=== PATIENT | male | born 1950 | race Caucasian/White ===

== ENCOUNTER 2016-05-01 11:00 | Day surgery (SDC) ==
[2016-04-30 13:15] LABS: HEMATOCRIT 43.5 % (42.0-52.0); HEMOGLOBIN 14.7 g/dL (14.0-18.0); MCH 31.5 PG (27-31); MCHC 33.8 g/dL (33-37); MCV 93.3 FL (81-99); MPV 10.3 FL (7.4-10.4); RBC 4.66 XMIL (4.7-6.1)
[2016-04-30 13:36] LABS: AGAP 12; BUN 19 mg/dL (8-22); CALCIUM 9.5 mg/dL (8.8-10.2); CHLORIDE 99 mmol/L (98-107); COSMO 279; POTASSIUM 4.2 mmol/L (3.5-5.1); SODIUM 139 mmol/L (136-145); TCO2 28 mmol/L (25-35)
[2016-04-30 14:33] LABS: URIC ACID 4.5 mg/dL (3.4-7.0)
[2016-05-01] MEDS ORDERED: KEFZOL 2 GM/D5W 50 ML ONE (11:13)
[2016-05-01] MEDS ORDERED: REGLAN ONE (11:13)
[2016-05-01] MEDS ORDERED: PEPCID ONE (11:13)
[2016-05-01] MEDS ORDERED: LR 1,000 ML ONE (11:13)
[2016-05-01] MEDS ORDERED: DIPRIVAN 1% ONE (14:22)
[2016-05-01] MEDS ORDERED: DECADRON ONE (15:08)
[2016-05-01] MEDS ORDERED: ZOFRAN ONE (15:08)
[2016-05-01] MEDS ORDERED: MANNITOL ONE (15:08)
[2016-05-01] MEDS ORDERED: XYLOCAINE-MPF 2% ONE (15:08)
[2016-05-01] MEDS ORDERED: FLOMAX ONE (15:25)
--- NOTE | 2016-05-01 15:25 | OPERATIVE NOTE ---
PROCEDURE DATE: 05/01/2016 SURGEON: Wali Astorga MD PREOPERATIVE DIAGNOSIS: Right renal pelvic stone. POSTOPERATIVE DIAGNOSIS: Right renal pelvic stone. PROCEDURE PERFORMED: Extracorporeal shockwave lithotripsy of the right renal pelvic stone. ANESTHESIA: General via laryngeal mask. FINDINGS: An approximate 15 mm in diameter right renal pelvic stone. INDICATION FOR PROCEDURE: This 65-year-old male has a history of intermittent right flank pain. Evaluation revealed a large right renal pelvic stone. DESCRIPTION OF PROCEDURE: After informed consent was obtained from the patient, and him receiving IV antibiotics, he was taken to the main OR, placed in the supine position. General anesthesia via laryngeal mask was achieved. He was then placed in the proper position for right extracorporeal shockwave lithotripsy. The stone received 3000 shocks at a frequency of 90 per minute. He received 12.5 g of mannitol at the start. At completion, the stone appeared well fragmented. Total fluoroscopy time was 2 minutes 36 seconds. ESTIMATED BLOOD LOSS: 0. DISPOSITION: He tolerated the procedure well and was taken to the recovery room in good condition.
[2016-05-01] MEDS ORDERED: NORCO-10 ONE (15:29)
[2016-05-01 15:49] VITALS: BP 131/72
== END 2016-05-01 16:04 | disposition home or self-care (01) ==
LOC: PAT 11:00
PROVIDERS: ATTEND Urology
DX: N20.0 Calculus of kidney (principal); R10.9 Unspecified abdominal pain; N40.1 Benign prostatic hyperplasia with lower urinary tract symptoms; Z85.46 Personal history of malignant neoplasm of prostate; R97.20 Elevated prostate specific antigen [PSA]; R31.0 Gross hematuria; E29.1 Testicular hypofunction; N32.81 Overactive bladder; N52.9 Male erectile dysfunction, unspecified; N32.89 Other specified disorders of bladder; E11.9 Type 2 diabetes mellitus without complications; I10 Essential (primary) hypertension; Z68.36 Body mass index [BMI] 36.0-36.9, adult; E78.5 Hyperlipidemia, unspecified; G62.9 Polyneuropathy, unspecified; E66.9 Obesity, unspecified; Z90.79 Acquired absence of other genital organ(s); R39.15 Urgency of urination; Z79.82 Long term (current) use of aspirin; Z79.84 Long term (current) use of oral hypoglycemic drugs; Z79.899 Other long term (current) drug therapy; Z79.02 Long term (current) use of antithrombotics/antiplatelets; Z83.3 Family history of diabetes mellitus; Z82.49 Family history of ischemic heart disease and other diseases of the circulatory system; Z87.891 Personal history of nicotine dependence
CPT/HCPCS: 80048; 82948; 84550; 85027; J0690; J1100; J1170; J2150; J2405; J2550; J7120

== ENCOUNTER 2016-05-01 18:54 | Emergency (ER) ==
[2016-05-01] MEDS ORDERED: DILAUDID IM ONE (19:14)
[2016-05-01] MEDS ORDERED: PHENERGAN IM ONE (19:14)
--- NOTE | 2016-05-01 19:18 | PROVIDER DOCUMENTATION ---
HPI-General Adult - General Source: patient - History of Present Illness -Gen Adult Nature of Presenting Problems: 65 YOWM WITH HX OF MILD KIDNEY FAILURE, PRESETS TOED WITH C/O PT STATES HE WENT FOR A LITHOTRIPSY TODAY, AND NOW HAS SEVERE LT FLANK PAIN. PT STATES N/V SINCE PROCEDURE. PT STATES HE HAS BLOOD IN HIS URINE. Location of Pain/Injury: reports: other (LT FLANK) Pain Radiation: reports: no radiation Quality of Pain: reports: aching Severity: reports: severe Onset/Duration: reports: 1-3 hours ago Timing: reports: still present Context/Activities at Onset: reports: light activity Modifying Factors: improves with: nothing Similar Symptoms Previously?: No Recently seen or treated by another doctor?: No <Nomi Meehan - Last Filed: 05/01/16 19:13> <Thang Leonardo - Last Filed: 05/01/16 19:59> - General Chief Complaint: Flank Pain Stated Complaint: POST OP COMPLAINT Time Seen by Provider: 05/01/16 19:03 Allergies/Adverse Reactions: Patient Allergies Allergy/AdvReac Type Severity Reaction Status Date / Time No Known Allergies Allergy Verified 04/30/16 11:32 Home Medications: Home Medication List Medication Instructions Recorded Confirmed Last Taken Type ATORVAstatin [Lipitor] 40 mg PO DAILY 12/07/14 05/01/16 04/30/16 21:00 History Amlodipine [Norvasc] 5 mg PO DAILY 12/07/14 05/01/16 05/01/16 09:00 History Aspirin 81 mg PO DAILY 12/07/14 05/01/16 04/30/16 History Candesartan Cilexetil [Atacand] 32 mg PO DAILY 12/07/14 05/01/16 04/30/16 08:00 History Fexofenadine [Charlee] 180 mg PO DAILY 12/07/14 05/01/16 04/30/16 08:00 History Isosorbide Mononitrate E.r. [Imdur] 30 mg PO DAILY 12/07/14 05/01/16 05/01/16 09 :00 History Metformin HCl [Glucophage Xr] 250 mg PO BID 12/07/14 05/01/16 04/30/16 19:00 History Sertraline HCl [Zoloft] 100 mg PO DAILY 12/07/14 05/01/16 04/30/16 08:00 History Trazodone [Desyrel] 50 mg PO QHS 12/07/14 05/01/16 04/30/16 21:00 History Clopidogrel Bisulfate [Plavix] 75 mg PO DAILY #0 12/14/14 05/01/16 04/30/16 Rx Hydrocodone/APAP 10 mg/325 mg 1 each PO Q4H PRN #15 tablet 05/01/16 05/01/1610/09 Rx [[place]-10] Tamsulosin [Flomax] 0.4 mg PO DAILY #30 capsule 05/01/16 05/01/16 04/30/16 Rx Review of Systems - Adult - REVIEW OF SYSTEMS - ADULT Constitutional: denies: chills, fever Eyes: reports: no symptoms reported Ears, Nose, Mouth & Throat: reports: no symptoms reported Cardiovascular: denies: chest pain, palpitations, syncope Respiratory: denies: cough, shortness of breath, wheezing Gastrointestinal: reports: nausea, vomiting. denies: abdominal pain, diarrhea Genitourinary: reports: no symptoms reported Musculoskeletal: denies: back pain, neck pain Integumentary: reports: no symptoms reported Neurological: denies: dizziness/vertigo, headache/migraines, syncope Psychiatric: reports: no symptoms reported Endocrine: reports: no symptoms reported Hematologic/Lymphatic: reports: no symptoms reported Allergic/Immunologic: reports: no symptoms reported All Other Systems: Reviewed and Negative <Nomi Meehan - Last Filed: 05/01/16 19:13> Past History - Adult - PAST MEDICAL HISTORY-ADULT Review of Records: reports: Nursing Assessment Review, Medications Reviewed Cardiovascular: reports: HTN, hyperlipidemia Endocrine/Immune: reports: Diabetes - IMMUNIZATION STATUS Childhood Immunizations: See Nurse Assessment Flu Vaccine: See Nurse Assessment - SOCIAL HISTORY Smoking: chew Substance Use: denies Alcohol Use Frequency: never Living Situation: family <Nomi Meehan - Last Filed: 05/01/16 19:13> Physical Exam-General - CONSTITUTIONAL General Appearance: alert, severe distress - EYES Eyes: PERRL/EOMI, pink conjunctivae - HEAD, EARS, NOSE, MOUTH & THROAT HENMT: normocephalic/atraumatic, moist mucous membranes - NECK Neck: non-tender, full range of motion, supple - RESPIRATORY Respiratory: chest non-tender, lungs clear, normal breath sounds - CARDIOVASCULAR Cardiovascular: normal peripheral pulses, tachycardia - GASTROINTESTINAL (ABDOMEN) Abdominal Exam: normal bowel sounds, non tender, soft - LYMPHATIC Lymphatic: no adenopathy - MUSCULOSKELETAL Back Exam: normal inspection, no CVA tenderness, no vertebral tenderness, other (LEFT FLANK PAIN) Extremity: normal range of motion, non-tender - SKIN Integumentary: normal color, normal turgor, warm/dry - NEUROLOGIC Neurologic: grossly normal - PSYCHIATRIC Psych/Mental Status: oriented x 3 <Nomi Meehan - Last Filed: 05/01/16 19:13> Progress - REASSESSMENT Reassessment #1 Time Reassessed: 19:59 Status: improving <Thang Leonardo - Last Filed: 05/01/16 19:59> Departure <Nomi Meehan - Last Filed: 05/01/16 19:13> - Departure Time of Disposition Order: 19:58 Certified Medical Emergency: Emergent <Thang Leonardo - Last Filed: 05/01/16 19:59> - Departure DIAGNOSIS: Renal colic on right side Disposition: HOME 01 Condition: Stable Additional Instructions: ED Follow Up Instructions:follow urologist on am You have been treated by a care provider in the Emergency Department. These instructions are being provided to you so you can have an understanding of how to care for yourself upon discharge. Upon discharge from the Emergency Department, you are responsible for making arrangements for follow-up care by a physician of your choice. Take all prescribed medications as directed. Return to the Emergency Department immediately for any new or worsening symptoms. You may call the Physician Referral phone number at [phone] to obtain a list of Physicians who are taking new patients. Attestation - Scribe Verification/Attestation Scribe:: Nomi Meehan Acting as Scribe for:: Thang Leonardo Scribe documention review:: This chart was documented by a scribe and accurately reflects the service the provider performed and the decisions made by the provider. <Nomi Meehan - Last Filed: 05/01/16 19:13> Physician Attestation
[2016-05-01] MEDS ORDERED: DILAUDID IV ONE (19:57)
[2016-05-01] MEDS ORDERED: ZOFRAN IV ONE (19:57)
[2016-05-01 20:20] VITALS: BP 135/75
== END 2016-05-01 20:18 | disposition home or self-care (01) ==
LOC: ED 18:54
DX: N23 Unspecified renal colic (principal); R10.9 Unspecified abdominal pain; R11.2 Nausea with vomiting, unspecified; R00.0 Tachycardia, unspecified; R31.9 Hematuria, unspecified; Z98.890 Other specified postprocedural states; E78.5 Hyperlipidemia, unspecified; I10 Essential (primary) hypertension; Z79.899 Other long term (current) drug therapy; E11.9 Type 2 diabetes mellitus without complications; Z79.82 Long term (current) use of aspirin; Z79.02 Long term (current) use of antithrombotics/antiplatelets
CPT/HCPCS: 82948; 96372; 96374; 96375; J1170; J2405; J2550

== ENCOUNTER 2016-05-02 09:20 | Inpatient (IN) ==
[2016-05-02] MEDS ORDERED: LR 1,000 ML ONE (10:08)
[2016-05-02] MEDS ORDERED: KEFZOL 2 GM/D5W 50 ML ONE (10:08)
[2016-05-02] MEDS ORDERED: REGLAN ONE (10:12)
[2016-05-02] MEDS ORDERED: PEPCID ONE (10:12)
[2016-05-02] MEDS ORDERED: DEMEROL ONE (13:02)
[2016-05-02] MEDS ORDERED: DIPRIVAN 1% ONE (15:13)
[2016-05-02] MEDS: PHENERGAN ONE ×2 (17:12→17:20)
[2016-05-02] MEDS ORDERED: LR 500 ML ONE (17:17)
[2016-05-02 18:27] LABS: EOS# 0.01 X1000 (0.0-0.7); EOS% 0.1 % (0.0-10.0); HEMATOCRIT 29.9 % (42.0-52.0); HEMOGLOBIN 9.9 g/dL (14.0-18.0); IMM GRAN# 0.02 X1000 (0.0-0.04); IMM GRAN% 0.2 % (0.0-0.5); LYMPH# 0.49 X1000 (1.2-3.4); LYMPH% 5.7 % (20.5-51.1); MANUAL DIFF NEEDED? NO; MCH 31.4 PG (27-31); MCHC 33.1 g/dL (33-37); MCV 94.9 FL (81-99); MONO# 0.39 X1000 (0.11-0.59); MONO% 4.5 % (1.7-9.3); MPV 9.9 FL (7.4-10.4); NEUT% 89.5 % (42.2-75.2); PLT 162 X1000 (130-400); RBC 3.15 XMIL (4.7-6.1)
[2016-05-02] MEDS ORDERED: NS 1,000 ML ONE (18:30)
[2016-05-02 18:37] LABS: ALBUMIN 3.2 g/dL (3.5-5.0); CALCIUM 7.6 mg/dL (8.8-10.2); POTASSIUM 4.6 mmol/L (3.5-5.1); TOTAL BILIRUBIN 0.31 mg/dL (0.20-1.00)
[2016-05-02 18:49] LABS: CK-MB 8.3 ng/mL (0.0-5.0)
[2016-05-02] MEDS ORDERED: PROTONIX 80 MG in NS 80 ML IV ONE (18:52)
[2016-05-02 19:17] LABS: INR 1.06; PROTIME 10.8 Seconds (9.2-11.7)
[2016-05-02] MEDS: NS 1,000 ML IV SCH (19:23)
[2016-05-02 19:33] LABS: IRON SATURATION 22 %; TIBC 236 ug/dL; TOTAL IRON 53 ug/dL (53-167); UNBOUND IRON 183 ug/dL (112-346)
[2016-05-02 19:42] LABS: FREE T4 1.11 ng/dL (0.93-1.70)
[2016-05-02] MEDS: PROTONIX 80 MG in NS 80 ML IV SCH (19:53)
--- NOTE | 2016-05-02 19:55 | HISTORY AND PHYSICAL ---
PRIMARY CARE PHYSICIAN: Kim Trotter M.D. UROLOGIST: Wali Astorga M.D. CHIEF COMPLAINT: Intraoperative hematemesis. HISTORY OF PRESENT ILLNESS: Mr. Ibarra is a 65-year-old, male with a significant history of BPH, prostate cancer, who recently had a lithotripsy done by Dr. Astorga yesterday. Since his lithotripsy yesterday he was having significant lower back pain and dysuria. He came to the ER last night and was discharged home with renal colic with instructions to follow up with Dr. Astorga this morning. He saw Dr. Astorga this morning and the decision was then made to take him to the OR for cystoscopy with stone extraction and double-J stent placement. In the intraoperative period the patient had apparently some significant hematemesis which was suctioned at which time we were called for admission for GI bleed. The patient is currently in PACU. He is stable as far has vital signs go, his heart rate is tachycardic but he is normotensive. He has no real acute complaints with the exception of the fact that he feels like he has to void. When asked about any GI history, he says he has a history of GERD but what was most significant was that he states that he has been taking at least two Aleve on a daily basis for multiple years. He carries a history of some type of heart disease which he does not know the specific name of, but he also takes Plavix and aspirin so we are assuming he has coronary disease , but the patient is unsure. He has no abdominal pain. He denies any melena or hematochezia. We have ordered stat labs which are currently pending. Again he is hemodynamically stable at this time. Given the amount of bleeding, we are going to place him in the ICU for close observation. PAST MEDICAL HISTORY: 1. BPH. 2. Prostate cancer in remission. 3. Heart disease, type unspecified. 4. Hypertension. 5. Hyperlipidemia. 6. Diabetes mellitus. 7. GERD. 8. Obesity. SURGICAL HISTORY: Lower back surgery, TURP x2, prostate biopsy and now double- J stent placement. SOCIAL HISTORY: Patient quit smoking some time ago. He denies tobacco, alcohol or drug use. He is and has 2 children. He is retired from [employer]. FAMILY HISTORY: Mother from CV[place]. Father with [place]. REVIEW OF SYSTEMS: Fourteen-point review of systems obtained and found to be negative with the exception of the HPI. PHYSICAL EXAMINATION: VITAL SIGNS: Blood pressure 151/92, heart rate 117, respiratory rate 16, O2 saturation 96% on 2 L nasal cannula, temperature is 99.2 degrees. GENERAL: This is an obese, male, lying in hospital bed, in no acute distress. NEUROLOGIC: He is awake, alert, oriented. He follows commands without focal deficits. HEENT: Head is atraumatic, normocephalic. Pupils are equal, round, and reactive to light. Oral mucosa is dry. Trachea is midline. NECK: There is no JVD or carotid bruits. CHEST: Clear to auscultation bilaterally. CARDIOVASCULAR: Regular rate and rhythm. S1-S2 is noted. No murmurs. GASTROINTESTINAL: Soft, nondistended, nontender, bowel sounds positive. EXTREMITIES: Without edema, clubbing or cyanosis. Pulses are palpable bilaterally. DIAGNOSTIC DATA: Pending. ASSESSMENT AND PLAN: 1. Acute GI bleed: We will start the patient on a Protonix drip and place him in ICU. GI has been consulted. We have ordered stat labs and imaging which we will treat for accordingly. We will hold any antiplatelets or any anticoagulants. 2. Status post ureteral stent placement. This is stable. Currently the patient has a Cramer catheter with mildly pink-tinged urine draining. We will continue to monitor this closely. Dr. Astorga is following. 3. Hypertension: Chronic and stable, we will hold his medications for now. Add p.r.n. IV medication if needed. 4. Diabetes mellitus: We will check hemoglobin A1c. Add pattern blood sugar, sliding scale insulin for now. 5. Heart disease: Again patient does not know specific type of heart disease. He sees Dr. head at [facility]. We will try to obtain these records. For now he denies any chest pain, shortness of breath, lower extremity edema or orthopnea. A chest x-ray and EKG have been ordered. 6. Further recommendations to follow. Dictated by RANI Orellana for Jimmy Martinez MD [facility]
[2016-05-02] MEDS: HUMALOG SUBQ SCH (20:46)
[2016-05-02] MEDS: NORCO-10 PO PRN (20:49)
[2016-05-02] MEDS: DESYREL PO SCH (21:00)
[2016-05-02] MEDS ORDERED: GLUCOPHAGE XR PO SCH (21:00)
[2016-05-03 00:13] LABS: HEMOGLOBIN 9.7 g/dL (14.0-18.0)
[2016-05-03 00:22] LABS: HEMATOCRIT 28.8 % (42.0-52.0)
[2016-05-03] MEDS: PROTONIX 80 MG in NS 80 ML IV SCH ×2 (05:19→15:54)
[2016-05-03 06:00] LABS: HEMATOCRIT 29.4 % (42.0-52.0); HEMOGLOBIN 9.6 g/dL (14.0-18.0); HEMOGLOBIN A1C 5.2 % (4.8-6.0); MCHC 32.7 g/dL (33-37); MCV 94.8 FL (81-99); MPV 10.1 FL (7.4-10.4); RBC 3.1 XMIL (4.7-6.1)
--- NOTE | 2016-05-03 06:13 | OPERATIVE NOTE ---
PROCEDURE DATE: 05/02/2016 SURGEON: Wali Astorga MD PREOPERATIVE DIAGNOSIS: Right mid to distal ureteral steinstrasse. POSTOPERATIVE DIAGNOSIS: Right mid to distal ureteral steinstrasse. PROCEDURE PERFORMED: 1. Cystoscopic exam. 2. Right ureteroscopy. 3. Laser lithotripsy of stones. 4. Basket extraction of fragments. 5. Placement of right double-J stent. ANESTHESIA: General endotracheal. FINDINGS: Cystoscopic exam: Urethra-greater than 21 Burmese without stricture. Prostate-coapting lateral lobes elevated, bladder neck length approximately 4-1/2 cm. Bladder-normal ureteral orifices bilaterally. Grade 2 trabeculations. No diverticula or papillary lesions noted. There were stone fragments in the bladder. Right ureteroscopy revealed the distal ureter packed with stone fragments the largest around 6 mm. Rectal exam revealed a prostate of about 50 g, smooth, and symmetric. After the patient was intubated an NG tube was placed and approximately 800 mL of very dark, old blood was aspirated from his stomach. INDICATION FOR PROCEDURE: This 65-year-old male had a 15 x 20 mm stone in right renal pelvis. He underwent extracorporeal shockwave lithotripsy yesterday. He developed right flank pain. He also developed significant abdominal pains with nausea. DESCRIPTION OF PROCEDURE: After informed consent was obtained from the patient and him receiving IV antibiotics, he was taken the main OR cystoscopy room and placed in the supine position. General endotracheal anesthesia was achieved. He was then placed in a low lithotomy position and prepped and draped in the usual sterile fashion for cystoscopic exam. A 21-Burmese cystoscope was passed through the patient's urethra, prostate, and bladder findings noted above. A 0.035 ZIPwire was passed through the cystoscope, engaged right ureteral orifice advanced up into the kidney. After the wire was placed a large amount of cloudy efflux returned. A 7-Burmese Storz semirigid ureteroscope was advanced through the patient's urethra, prostate, and into the bladder. A 0.035 Sensor wire was passed through the ureteroscope and into the right ureter. The ureteroscope was advanced over the Sensor wire, beneath the ZIPwire and a large amount of stone debris was seen. The Sensor wire was removed. A 365 micron laser fiber was placed. Laser was set at 8 hertz and 8 mackey and the larger stones were well fragmented. A total of 752 joules was used. A 4 wire Nitinol basket was placed and multiple passes were made to remove stone fragments. Most of these were dropped in the bladder. Some were removed to send to Pathology for analysis. The ureteroscope was removed. A 6-Burmese, 26 cm double-J stent was passed over the ZIPwire and up into the kidney. The renal end was verified by fluoroscopic exam, bladder end directly visualized. The stent removal string was removed. The cystoscope was removed leaving the bladder distended. A 16-Burmese Cramer catheter was passed through the patient's urethra, prostate, and into the bladder, 10 mL sterile water were placed in Cramer's balloon. Cramer was placed to gravity drain. A rectal exam was performed. He tolerated the procedure well. His blood pressure was stable throughout the case. The patient will be seen by the hospitalist and probable GI physician for further evaluation of a significant GI bleed.
[2016-05-03 06:16] LABS: AGAP 10; BUN 49 mg/dL (8-22); CALCIUM 8.5 mg/dL (8.8-10.2); CHLORIDE 108 mmol/L (98-107); COSMO 297; HDL 29 mg/dL (35-55); LDL 44 mg/dL; POTASSIUM 4.7 mmol/L (3.5-5.1); SODIUM 142 mmol/L (136-145); TCO2 24 mmol/L (25-35); TRIGLYCERIDES 68 mg/dL (39-160); VLDL 14 mg/dL
[2016-05-03] MEDS: HUMALOG SUBQ SCH ×4 (06:25→20:46)
[2016-05-03] MEDS: NS 1,000 ML IV SCH ×2 (07:07→20:49)
[2016-05-03] MEDS ORDERED: ATACAND PO SCH (09:00)
[2016-05-03] MEDS: LIPITOR PO SCH (09:14)
[2016-05-03] MEDS: FLOMAX PO SCH (09:14)
[2016-05-03] MEDS: ALLEGRA PO SCH (09:14)
[2016-05-03] MEDS: ZOLOFT PO SCH (09:14)
[2016-05-03] MEDS: NORCO-10 PO PRN ×3 (09:21→20:46)
--- NOTE | 2016-05-03 09:34 | Diag Imaging Result Document ---
PROCEDURE NAME: FLAT/UPRIGHT ABD/1 VIEW CHEST - 05/02/2016 SUPINE UPRIGHT ABDOMEN AND ONE-VIEW CHEST: COMPARISON: No comparison exam. FINDINGS: There is mild gaseous small bowel distention, primarily in the left abdomen. There is mild gaseous distention of colon to approximately the splenic flexure. There is no free air identified. There is a right ureteral stent present. Upright chest shows within normal limits heart size. There is some prominence of the aortic knob, but this is likely exaggerated by the AP projection and mild rotation towards the left. There is subsegmental atelectasis at the left lung base. The remainder of the lungs appear essentially clear. There is no substantial pleural effusion or pneumothorax identified. IMPRESSION: Mild gaseous distention of portions of small bowel and colon which may relate to ileus. Subsegmental atelectasis at left lung base.
[2016-05-03] MEDS: NORVASC PO SCH (11:37)
[2016-05-03] MEDS: IMDUR PO SCH (11:53)
--- NOTE | 2016-05-03 15:32 | PROGRESS NOTE ---
DATE: 05/03/2016 Today Mr. Ibarra referred to be doing okay but he was a little irritable because he has not been evaluated by GI yet. OBJECTIVE: Vital signs: Blood pressure is 147/86, pulse of 93, respiration is 13, temperature is 98.9 degrees. General: Mr. Ibarra is a 65-year-old male. He is in bed, does not seem to be in any distress. HEENT: Mucosa is pink and moist. Anicteric. Acyanotic. Neck: Supple. Chest: Clear. Cardiovascular: Regular rate and rhythm. Abdomen: Soft. Mildly tender to the right side. Bowel sounds are present. Extremities: No pedal edema. 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 No focal neurological deficit. LABORATORY DATA: WBC is 7.64, hemoglobin is 9.6, platelet count 179,000, chemistry reviewed. Creatinine is 1.6, down from 2.0. Procedure done yesterday was a cystoscopic examination, right ureteroscopy, laser lithotripsy of stone, basket extraction of fragments, placement of right double-J stent. ASSESSMENT: 1. Anemia of acute blood loss. 2. GI bleed. I understand 800 mL of dark coffee ground material was aspirated from the abdomen during surgery and we are pending GI to evaluate the patient. For now, patient is on PPI drip. Hemoglobin and hematocrit is stable. 3. History of coronary artery disease. According to the patient, he has been evaluated by Dr. Rivera, gear design engineer in [place], and his coronaries had plaques and it was not amenable to intervention so he was started on double anti-platelet regimen and this has been since 2001. In the face of the GI bleed, that has been withheld. Hopefully GI will evaluate the patient and we will get to know some of what is causing the bleed and help the gear design engineer to make a decision if he still needs double coverage or he will be on 1. That will be done with his heart doctor in [place]. 4. Diabetes mellitus. Very controlled with an A1c of 5.2. 5. Acute on mild chronic kidney disease (stage 3A). This seems to be improving with hydration, will continue with the same. 6. History of nephrolithiasis status post lithotripsy and stone extraction with double-J stent placement in the right kidney.
[2016-05-03] MEDS: DESYREL PO SCH (20:47)
[2016-05-04] MEDS: PROTONIX 80 MG in NS 80 ML IV SCH (03:37)
[2016-05-04 06:23] LABS: HEMATOCRIT 27.9 % (42.0-52.0); HEMOGLOBIN 8.9 g/dL (14.0-18.0); MCH 30.8 PG (27-31); MCHC 31.9 g/dL (33-37); MCV 96.5 FL (81-99); RBC 2.89 XMIL (4.7-6.1)
[2016-05-04 06:36] LABS: CALCIUM 7.8 mg/dL (8.8-10.2)
[2016-05-04] MEDS: HUMALOG SUBQ SCH ×4 (07:23→20:35)
[2016-05-04] MEDS: LIPITOR PO SCH (08:47)
[2016-05-04] MEDS: ALLEGRA PO SCH (08:47)
[2016-05-04] MEDS: FLOMAX PO SCH (08:47)
[2016-05-04] MEDS: ZOLOFT PO SCH (08:48)
[2016-05-04] MEDS: NS 1,000 ML IV SCH ×3 (08:49→21:33)
--- NOTE | 2016-05-04 10:48 | PROGRESS NOTE ---
DATE: 05/04/2016 SUBJECTIVE: Today Mr. Ibarra refers to be doing a whole lot better. He denies any nausea and vomiting. He denies any bowel movement. OBJECTIVE: Vital signs: Blood pressure is 143/100, pulse of 87, respiration is 14, temperature is 98.8 degrees. General: Mr. Ibarra is a 65-year-old male. He is in bed, not in any distress. HEENT: Mucosa is pink and moist. Anicteric. Acyanotic. Neck: Supple. Chest: Good air entry bilateral. There are no crepitations no rhonchi. Cardiovascular: Regular rate and rhythm. No murmurs. No rubs. No gallops. Abdomen: Soft, nontender. Extremities: No pedal edema. 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 There is no focal neurological deficit. LABORATORY DATA: Hemoglobin is 8.9; minimal dropped from 9.6 yesterday. Platelet count and WBC are normal. Chemistry is reviewed and completely normal except for creatinine of 1.4. This is an improvement from 2.0 yesterday. ASSESSMENT: 1. Anemia of acute blood loss. Hemoglobin and hematocrit continue to have minimal drop, not very significant. Patient is not symptomatic. I will continue to observe. He is not having any hematemesis or any melena. 2. Gastrointestinal bleed. We understand that 800 mL of dark coffee ground material was aspirated from the abdomen during surgery. However, here in the ICU patient has not had any more vomiting and has not had any bowel movement. Hemoglobin and hematocrit are relatively stable. I think the minimal drop is probably from dilution. 3. History of coronary artery disease. The patient is on Imdur and was on dual antiplatelet agents. 4. Diabetes mellitus, controlled. 5. Uncontrolled hypertension. We are going to increase the amlodipine to 5 b.i.d. We will continue with the Imdur. 6. History of nephrolithiasis status post lithotripsy and stone extraction with double J stent placement in the right kidney by Dr. Astorga. Today is day 2 postop. Patient seems to be doing fine. Cramer catheter has been removed. PLAN: I think in general patient is stable. We will going to keep an eye on the hemoglobin and hematocrit. I will discontinue the Protonix drip and put him on b.i.d. IV Protonix. We are going to move him from the ICU to regular floor. We will keep his current diet and keep him NPO for tomorrow morning for the procedure. We will also bump up a little bit his fluids to continue improving his renal function. If tomorrow EGD is unremarkable we might be able to discharge the patient.
[2016-05-04] MEDS: IMDUR PO SCH (10:56)
[2016-05-04] MEDS: SODIUM CHLORIDE 0.9% INJ SCH ×2 (11:03→21:33)
[2016-05-04] MEDS: PROTONIX IV SCH ×2 (11:03→21:33)
[2016-05-04] MEDS: NORVASC PO SCH ×2 (11:09→20:40)
[2016-05-04] MEDS: NORCO-10 PO PRN ×2 (11:45→17:22)
[2016-05-04] MEDS: DESYREL PO SCH (20:40)
[2016-05-05] MEDS: HUMALOG SUBQ SCH (07:27)
[2016-05-05] MEDS ORDERED: HESPAN 500 ML ONE (07:29)
[2016-05-05] MEDS ORDERED: XYLOCAINE-MPF 2% ONE ×2 (07:29→10:53)
[2016-05-05] MEDS ORDERED: ZOFRAN ONE (07:29)
[2016-05-05] MEDS ORDERED: LR 1,000 ML ONE ×2 (07:29→10:53)
[2016-05-05] MEDS ORDERED: DECADRON ONE (07:29)
[2016-05-05] MEDS ORDERED: ANESTHESIA PB SET 88 IN 5742 ONE ×2 (07:29→10:53)
[2016-05-05] MEDS ORDERED: QUELICIN (DOSE) ONE (07:29)
[2016-05-05 08:05] VITALS: BP 123/56
[2016-05-05 08:17] LABS: AGAP 8; BUN 19 mg/dL (8-22); CALCIUM 8.2 mg/dL (8.8-10.2); CHLORIDE 103 mmol/L (98-107); COSMO 280; POTASSIUM 4.6 mmol/L (3.5-5.1); SODIUM 139 mmol/L (136-145); TCO2 28 mmol/L (25-35)
[2016-05-05 08:20] LABS: HEMATOCRIT 27.1 % (42.0-52.0); HEMOGLOBIN 8.8 g/dL (14.0-18.0); MCH 31.3 PG (27-31); MCHC 32.5 g/dL (33-37); MCV 96.4 FL (81-99); MPV 9.9 FL (7.4-10.4); RBC 2.81 XMIL (4.7-6.1)
[2016-05-05] MEDS: PROTONIX IV SCH (09:20)
[2016-05-05] MEDS: NS 1,000 ML IV SCH (09:21)
[2016-05-05] MEDS ORDERED: MYLICON DROPS (DOSE) MISC ONE (09:53)
--- NOTE | 2016-05-05 10:38 | Diag Imaging Result Document ---
PROCEDURE NAME: FLUROSCOPY CYSTO - 05/02/2016 FLUOROSCOPY AND MULTIPLE VIEWS OF THE ABDOMEN, 05/02/2016: COMPARISON: CT abdomen and pelvis, 09/15/2013. FINDINGS: The exam was performed by the patient's urologist. Twenty-one images were submitted. There was placement of a right nephroureteral stent in apparently normal position. IMPRESSION: No complication.
[2016-05-05] MEDS ORDERED: CARAFATE PO SCH (11:00)
[2016-05-05] MEDS: ZOLOFT PO SCH (11:03)
[2016-05-05] MEDS: FLOMAX PO SCH (11:04)
[2016-05-05] MEDS: IMDUR PO SCH (11:05)
[2016-05-05] MEDS: LIPITOR PO SCH (11:06)
[2016-05-05] MEDS: NORVASC PO SCH (11:06)
--- NOTE | 2016-05-05 14:52 | EKG Report ---
Test Performed on : 05/02/2016 5:48:42 PM Test Reason : Tachycardia Blood Pressure : / mmHG Vent. Rate : 121 BPM Atrial Rate : 121 BPM P-R Int : 172 ms QRS Dur : 082 ms QT Int : 298 ms P-R-T Axes : 038 005 058 degrees QTc Int : 423 ms Sinus tachycardia. Otherwise normal ECG When compared with ECG of 25-NOV-2015 03:35, Vent. rate has increased BY 44 BPM Confirmed by Sandeep LAGOS, Elijah Ballesteros ([id number]) on 05/07/2016 11:34:33 AM
--- NOTE | 2016-05-05 17:33 | OPERATIVE NOTE ---
PROCEDURE DATE: 05/05/2016 PROCEDURE: Esophagogastroduodenoscopy with biopsy of the gastric ulcer. PREOPERATIVE DIAGNOSES: 1. Coffee-grounds emesis on Thursday intraoperatively, after cystoscopy for kidney stones, 800 mL of coffee-ground material was suctioned out. 2. History of use of nonsteroidal anti-inflammatory drugs like Aleve every day for many years. 3. Obesity. 4. Anemia. 5. Reflux disease. 6. Last colonoscopy was with Dr. Prakash many years ago. POSTOPERATIVE DIAGNOSES: 1. Esophagitis in the distal esophagus. 2. Z-line noted at 44 cm. 3. Evidence of sliding hiatal hernia measuring 2 cm. 4. Schatzki ring distal esophagus. 5. Ulcer in the lesser curvature of the gastric body measuring about 1 cm. This was biopsied from the edges. 6. Erosive gastritis of body and antrum. 7. Normal fundus, cardia, incisura on retroflexion. Normal 2nd portion duodenum. 8. Erosive duodenitis in the 1st portion duodenum. ESTIMATED BLOOD LOSS: Minimal. COMPLICATIONS: None. ANESTHESIA: Monitored anesthesia care by the anesthesiologist. SPECIMENS REMOVED: Gastric ulcer biopsy sent to Surgical Pathology. DESCRIPTION OF PROCEDURE: After informed consent was obtained and the patient explained the risks, benefits, indications, alternatives, the patient was prepared for EGD. The patient was brought to the OR, turned in the left lateral position. A bite block was placed in patient mouth. After adequate monitored anesthesia care, the upper scope was introduced over the oral vestibule all the way to the second portion of the duodenum. The esophagus was normal in the the proximal and mid third of the esophagus. The distal third of the esophagus showed evidence of erythema, friability, erosions ulcers in the distal esophagus suggesting esophagitis LA grade 2-3. Z-line visualized at 44 cm. There was evidence of Schatzki ring at the GE junction, which was mildly obstructing the Z line visualized at 44 cm. Hiatal hernia was noted 2 cm without any evidence of ulcer. Scope was advanced into the stomach and there was an ulcer seen in the lesser curvature of the body of the stomach. This was biopsied. Retroflexion of the scope revealed normal fundus, cardia, incisura. The rest of stomach showed erosive gastritis. The duodenal bulb showed evidence of erosions and erythema suggesting erosive duodenitis. The second portion duodenum appeared normal. The scope was withdrawn into the stomach. The air was aspirated as the scope withdrawn. The patient tolerated the procedure and is currently monitored in OR in stable condition. I discussed the findings with the patient and family and all questions were answered. RECOMMENDATIONS: 1. The patient will be on Prilosec once daily for 3 months and then he can be transitioned to Zantac 150 mg at bedtime. 2. Patient will be on Carafate 1 g q.6h. for 4 weeks. 3. Patient will avoid any NSAIDs. 4. She will follow gastroesophageal reflux life changes. Avoid excessive tea, coffee, soda, tomatoes, onions, spicy foods. 5. The patient will be on iron-C 1 capsule b.i.d. for 3 months. The patient was start on Centrum Silver once daily for 3 months. 6. The patient follow up with us in 3 months from now to schedule for repeat EGD to document healing of the ulcer. 7. The above plan of care was discussed with the patient and all questions were answered. MTDD
[2016-05-05] MEDS ORDERED: ICAR-C PO SCH (21:00)
[2016-05-06] MEDS ORDERED: THERA M PLUS PO SCH (09:00)
--- NOTE | 2016-05-06 09:25 | DISCHARGE SUMMARY ---
ADMISSION DATE: 05/02/2016 DISCHARGE DATE: 05/05/2016 HOSPITAL COURSE: Mr. Ibarra is a 65-year-old. He presented with intraoperative hematemesis. His doctor is Dr. Kim Trotter and his urologist is Dr. Wali Astorga. He is a male with significant history of benign prostatic hypertrophy, prostate cancer. Recently had lithotripsy per Dr. Astorga the day before on 05/01. Since lithotripsy, he has been having some significant lower back pain and dysuria. He came to the ER in the night and was discharged home with renal colic instructions, to follow up with Dr. Astorga in the morning. He saw Dr. Astorga. Decision was made to take him to OR for cystoscopy with stone extraction and double-J stent placed. In the intraoperative period, the patient apparently had some significant hematemesis and suction, at which time he was suctioned, at which time he was put on admission for GI bleed. The patient currently is in the PACU. His vital signs are stable. GI history of gastroesophageal reflux. Most significant states that he has been taking at least 2 Aleve a day daily for multiple years, carries a history of some type of heart disease that he does not know the specific name of (he is unsure). He has had no abdominal pain. No melena or hematochezia reported. PAST MEDICAL HISTORY: 1. Benign prostatic hypertrophy. 2. Prostate cancer in remission. 3. Heart disease, type unspecified. 4. Hypertension. 5. Hyperlipidemia. 6. Diabetes mellitus type 2. 7. Gastroesophageal reflux. 8. Obesity. SURGICAL HISTORY: He has had lower back surgery, TURP x2, prostate biopsy, double-J stent recently placed I believe on the . He underwent an EGD. This was Dr. Combs. He did get a biopsy and had severe erosive gastritis, esophagitis and duodenitis. Reported that he could go home. DISCHARGE MEDICATIONS: 1. Norvasc 5 mg b.i.d. 2. Lipitor 40 mg a day. 3. Icar C one b.i.d. 4. Imdur 30 mg a day. 5. Thera M Plus 1 a day. 6. Zoloft 100 mg daily. 7. Carafate 1 g q. 6 hours which will do for 4 weeks. 8. Trazodone 50 mg at bedtime. 9. Flomax 0.4 mg daily. FOLLOW UP: He is follow up Dr. With Dr. Trotter and Dr. Combs and, of course Dr. Wali Astorga. PLAN: We will discharge him home.
== END 2016-05-05 13:47 | disposition home or self-care (01) | DRG 988 ==
LOC: OR 09:20 → 4N 17:35 → OBSVTOIN 17:35 → ICU 18:37 → 3N 05-04 20:52
PROVIDERS: ATTEND Emergency Medicine
PROC: 0TC68ZZ Extirpation of Matter from Right Ureter, Via Natural or Artificial Opening Endoscopic (ICD-10-PCS; 2016-05-02 15:51)
PROC: 0T768DZ Dilation of Right Ureter with Intraluminal Device, Via Natural or Artificial Opening Endoscopic (ICD-10-PCS; 2016-05-02 15:51)
PROC: 0DB68ZX Excision of Stomach, Via Natural or Artificial Opening Endoscopic, Diagnostic (ICD-10-PCS; principal; 2016-05-05 09:43)
DX: K25.4 Chronic or unspecified gastric ulcer with hemorrhage (principal); D62 Acute posthemorrhagic anemia; E11.22 Type 2 diabetes mellitus with diabetic chronic kidney disease; E11.42 Type 2 diabetes mellitus with diabetic polyneuropathy; N20.1 Calculus of ureter; K22.2 Esophageal obstruction; N18.3 Chronic kidney disease, stage 3 (moderate); N43.3 Hydrocele, unspecified; N32.81 Overactive bladder; Z87.442 Personal history of urinary calculi; N32.89 Other specified disorders of bladder; E78.5 Hyperlipidemia, unspecified; I25.10 Atherosclerotic heart disease of native coronary artery without angina pectoris; E66.9 Obesity, unspecified; I12.9 Hypertensive chronic kidney disease with stage 1 through stage 4 chronic kidney disease, or unspecified chronic kidney disease; K21.9 Gastro-esophageal reflux disease without esophagitis; K20.9 Esophagitis, unspecified; K44.9 Diaphragmatic hernia without obstruction or gangrene; M06.9 Rheumatoid arthritis, unspecified; Z68.37 Body mass index [BMI] 37.0-37.9, adult; Z85.46 Personal history of malignant neoplasm of prostate; Z87.891 Personal history of nicotine dependence; Z82.49 Family history of ischemic heart disease and other diseases of the circulatory system; Z82.3 Family history of stroke; Z83.3 Family history of diabetes mellitus; Z79.899 Other long term (current) drug therapy; Z79.84 Long term (current) use of oral hypoglycemic drugs; Z79.82 Long term (current) use of aspirin; Z79.02 Long term (current) use of antithrombotics/antiplatelets; Z79.1 Long term (current) use of non-steroidal anti-inflammatories (NSAID); K29.81 Duodenitis with bleeding; K29.61 Other gastritis with bleeding; N40.1 Benign prostatic hyperplasia with lower urinary tract symptoms; R97.20 Elevated prostate specific antigen [PSA]; R31.0 Gross hematuria; E29.1 Testicular hypofunction; N52.9 Male erectile dysfunction, unspecified; Z90.79 Acquired absence of other genital organ(s); R39.15 Urgency of urination
CPT/HCPCS: 74022; 76000; 80048; 80053; 80061; 82360; 82550; 82553; 82607; 82728; 82746; 82948; 83036; 83540; 83550; 83605; 83735; 83970; 84439; 84443; 84484; 84550; 85014; 85018; 85025; 85027; 85610; 86850; 86870; 86900; 86901; 86922; 88300; 88305; 88312; 88313; 93005; 93010; 96372; 96374; 96375; C2617; C9113; J0330; J0690; J1100; J1170; J2150; J2175; J2405; J2550; J7030; J7120; S0164

== ENCOUNTER 2019-03-16 23:17 | Observation (INO) ==
[2019-03-17] MEDS ORDERED: FLOMAX PO ONE (00:16)
[2019-03-17] MEDS ORDERED: ATIVAN PO ONE (00:17)
[2019-03-17 00:45] LABS: BASO# 0.01 X1000 (0.0-0.2); BASO% 0.1 % (0.0-0.8); HEMATOCRIT 42.3 % (42.0-52.0); HEMOGLOBIN 13.6 g/dL (14.0-18.0); IMM GRAN# 0.05 X1000 (0.0-0.04); IMM GRAN% 0.4 % (0.0-0.5); LYMPH% 3.8 % (20.5-51.1); MCH 29.8 PG (27-31); MCHC 32.2 g/dL (33-37); MCV 92.6 FL (81-99); MONO# 1.32 X1000 (0.11-0.59); MONO% 10.1 % (1.7-9.3); MPV 9.7 FL (7.4-10.4); NEUT# 11.24 X1000 (1.4-6.5); NEUT% 85.6 % (42.2-75.2); PLT 158 X1000 (130-400); RBC 4.57 XMIL (4.7-6.1); RDW 14.2 % (11.5-14.5); WBC 13.12 X1000 (4.8-10.8)
[2019-03-17 01:23] LABS: URINE SOURCE CLEAN CATCH
[2019-03-17 01:31] LABS: URINE BACTERIA 3+ /HFP; URINE EPITHELIAL CELLS <10 /HPF (<10)
[2019-03-17 01:32] LABS: BILIRUBIN URINE NEGATIVE (NEGATIVE); BLOOD URINE LARGE (NEGATIVE); CLARITY HAZY (CLEAR); COLOR YELLOW; GLUCOSE URINE NEGATIVE (NEGATIVE); KETONE URINE NEGATIVE (NEGATIVE); NITRITE URINE NEGATIVE (NEGATIVE); PROTEIN URINE 100 mg/dL (NEGATIVE); URINE CRYSTAL CA OXALATE PRESENT /HPF; UROBILINOGEN URINE 0.2 EU/dL (0.2-1.0)
[2019-03-17 01:33] LABS: LEUKOCYTES URINE LARGE (NEGATIVE); URINE WBC TNTC /HPF (<10)
[2019-03-17] MEDS ORDERED: SEPTRA DS PO ONE (01:40)
--- NOTE | 2019-03-17 03:03 | PROVIDER DOCUMENTATION ---
This chart was entered by Sola Sandhu Scribe, acting as scribe for Rufino Moore MD. HPI-Male Problem - General Chief Complaint: Male Stated Complaint: MALE Time Seen by Provider: 03/16/19 23:30 Source: patient Allergies/Adverse Reactions: Patient Allergies Allergy/AdvReac Type Severity Reaction Status Date / Time No Known Allergies Allergy Verified 04/30/16 11:32 Home Medications: Home Medication List Medication Instructions Recorded Confirmed Last Taken Type ATORVAstatin [Lipitor] 40 mg PO DAILY 12/07/14 05/02/16 04/30/16 21:00 History Amlodipine [Norvasc] 5 mg PO DAILY 12/07/14 05/02/16 05/01/16 09:00 History Aspirin 81 mg PO DAILY 12/07/14 05/02/16 04/30/16 History Candesartan Cilexetil [Atacand] 32 mg PO DAILY 12/07/14 05/02/16 04/30/16 08:00 History Isosorbide Mononitrate E.r. [Imdur] 30 mg PO DAILY 12/07/14 05/02/16 05/01/16 09:00 History Metformin HCl [Glucophage Xr] 250 mg PO BID 12/07/14 05/02/16 04/30/16 21:00 History Sertraline HCl [Zoloft] 100 mg PO DAILY 12/07/14 05/02/16 04/30/16 08:00 History Trazodone [Desyrel] 50 mg PO QHS 12/07/14 05/02/16 04/30/16 21:00 History Clopidogrel Bisulfate [Plavix] 75 mg PO DAILY #0 12/14/14 05/02/16 04/30/16 Rx Hydrocodone/APAP 10 mg/325 mg 1 each PO Q4H PRN #15 tablet 05/01/16 05/02/16 05/01/16 16:00 Rx [[place]-10] Tamsulosin [Flomax] 0.4 mg PO DAILY #30 capsule 05/01/16 05/02/16 05/01/16 15:00 Rx Iron Carbonyl/Ascorbic Acid 1 each PO BID #60 tablet 05/05/16 Unknown Rx [Icar-C] Pantoprazole [Protonix] 40 mg PO DAILY@0700 #60 tablet 05/05/16 Unknown Rx Sucralfate [Carafate] 1 gm PO Q6H #120 tablet 05/05/16 Unknown Rx Sulfamethoxazole/Tmp D.s. [Septra 1 ea PO BID #20 tab 03/17/19 Unknown Rx Ds] - History of Present Illness-Male Nature of Presenting Problem: pt is a 68 yr old male presenting with 1 day complaint of urinary retention, pt report prostate surgery/cystoscopy last week, catheter removed yesterday, pt reports unable to void since catheter removed. Location of Complaint: reports: suprapubic, urethral Radiation: reports: none Quality of Pain: reports: fullness, pressure Severity in ED: reports: moderate Onset/Duration: reports: this morning Timing: reports: still present Context/Activities at Onset: reports: rest Urinary Symptoms: reports: retention Associated Symptoms: reports: none Associated Symptoms: denies: fever/chills Similar Symptoms Previously?: No Recently seen or treated by another doctor?: Yes Review of Systems - Adult - REVIEW OF SYSTEMS - ADULT Constitutional: denies: chills, fever Eyes: reports: no symptoms reported Ears, Nose, Mouth & Throat: reports: no symptoms reported Cardiovascular: reports: no symptoms reported Respiratory: reports: no symptoms reported Gastrointestinal: reports: abdominal pain. denies: diarrhea, nausea, vomiting Genitourinary: reports: urinary retention Musculoskeletal: reports: no symptoms reported Integumentary: reports: no symptoms reported Neurological: reports: no symptoms reported Psychiatric: reports: no symptoms reported Endocrine: reports: no symptoms reported Hematologic/Lymphatic: reports: no symptoms reported Allergic/Immunologic: reports: no symptoms reported All Other Systems: Reviewed and Negative Past History - Adult - PAST MEDICAL HISTORY-ADULT Review of Records: reports: Old Records Reviewed, Nursing Assessment Review, Medications Reviewed, Social history reviewed & non-contributory. Major Childhood Illnesses: reports: denies history Cardiovascular: reports: HTN, hyperlipidemia Respiratory: reports: denies history Gastrointestinal: reports: denies history Obstetrical/Gynecological: reports: denies history Genitourinary: reports: denies history Musculoskeletal: reports: denies history Neurological: reports: denies history Endocrine/Immune: reports: Diabetes Other Conditions: reports: denies history - IMMUNIZATION STATUS Childhood Immunizations: See Nurse Assessment Flu Vaccine: See Nurse Assessment - FAMILY HISTORY Family History: reviewed, not pertinent - SOCIAL HISTORY Smoking: quit greater than 1 year Substance Use: denies Living Situation: family Physical Exam-General - PHYSICAL EXAM-ADULT Initial Vital Signs Reviewed: Yes - CONSTITUTIONAL General Appearance: alert, no apparent distress, obese - EYES Eyes: PERRL/EOMI - HEAD, EARS, NOSE, MOUTH & THROAT HENMT: normocephalic/atraumatic, moist mucous membranes - NECK Neck: non-tender, full range of motion, supple, normal inspection - RESPIRATORY Respiratory: lungs clear, normal breath sounds - CARDIOVASCULAR Cardiovascular: normal peripheral pulses, tachycardia - GASTROINTESTINAL (ABDOMEN) Abdominal Exam: normal bowel sounds, soft, tenderness (suprapubic tenderness) - LYMPHATIC Lymphatic: no adenopathy - MUSCULOSKELETAL Back Exam: normal inspection Extremity: normal range of motion, non-tender, normal inspection - SKIN Integumentary: normal color, normal turgor, warm/dry - NEUROLOGIC Neurologic: grossly normal, no motor/sensory deficits - PSYCHIATRIC Psych/Mental Status: normal mood/affect Progress - PLAN OF CARE/RESULTS Progress/Plan/Lab Results: Vital Signs - 8 hr 03/16/19 23:20 03/17/19 02:46 Temperature 97.8 F 98.6 F Pulse Rate 127 H Respiratory Rate 18 Blood Pressure 110/72 O2 Sat by Pulse Oximetry 93 L Laboratory Results - last 24 hr 03/17/19 03/17/19 00:30 01:00 WBC 13.12 H RBC 4.57 L Hgb 13.6 L Hct 42.3 MCV 92.6 MCH 29.8 MCHC 32.2 L RDW Std Deviation 14.2 Plt Count 158 MPV 9.7 Immature Gran % (Auto) 0.4 Neut % (Auto) 85.6 H Lymph % (Auto) 3.8 L Carbon % (Auto) 10.1 H Eos % (Auto) 0.0 Baso % (Auto) 0.1 Immature Gran # (Auto) 0.05 H Neut # (Auto) 11.24 H Lymph # (Auto) 0.50 L Carbon # (Auto) 1.32 H Eos # (Auto) 0.00 Baso # (Auto) 0.01 Urine Source CLEAN CATCH Urine Color YELLOW Urine Clarity HAZY A Urine Turbidity Cancelled Urine pH 7.0 Ur Specific [place] 1.010 Urine Protein 100 A Ur Glucose (Stick) Cancelled Urine Ketones NEGATIVE Ur Ketones (Stick) Cancelled Urine Blood LARGE A Urine Nitrite NEGATIVE Urine Bilirubin NEGATIVE Urine Urobilinogen 0.2 Urobilinogen Dipstick Cancelled Urine Leukocytes Cancelled Urine WBC (Auto) Cancelled Urine RBC (Auto) Cancelled U Epithel Cells (Auto) Cancelled Urine Bacteria (Auto) Cancelled Urine Microscopic RBC 10-20 A Urine WBC LARGE A Urine Microscopic WBC TNTC A Ur Epithelial Cells <10 Urine Crystals CA OXALATE PRESENT Urine Bacteria 3+ Urine Glucose NEGATIVE Orders Category Date Time Status US PELVIC MALE (COMPLETE) [US] Stat Exams 03/16/19 23:46 Taken CBC WITH DIFF [HEME] Stat Lab 03/17/19 00:30 Completed URINE CULTURE [RM] Routine Lab 03/17/19 01:33 Ordered Lorazepam [Ativan] Med 03/17/19 00:17 Discontinued 0.5 mg PO NOW ONE Sulfamethoxazole/Tmp D.s. [Septra Ds] Med 03/17/19 01:40 Discontinued 1 each PO NOW ONE Tamsulosin [Flomax] Med 03/17/19 00:16 Discontinued 0.4 mg PO NOW ONE Result Diagrams: 03/17/19 00:30 - ULTRASOUND (By Radiology) 1 US Study: Pelvic Impression: Abnormal (marked diffuse bladder wall thickening, considerations would include cystitis, infectious or noninfectious, neoplasm is less likely) - CONSULTS/PCP/HOSPITALIST Notification #1 *Consult/PCP/Hospitalist*: Dr Tapia Time Discussed: 00:55 Reason/Comments: discussed plan of care and pt ultrasound report Consult Disposition: F/U in office Departure - Departure Date of Disposition Decision: 03/17/19 Time of Disposition Decision: 03:01 DIAGNOSIS: Urinary retention, Bacteriuria with pyuria Disposition: STILL A PATIENT 30 Certified Medical Emergency: Emergent Condition: Stable Additional Instructions: ED Follow Up Instructions:use your flomax call dr kolb You have been treated by a care provider in the Emergency Department. These instructions are being provided to you so you can have an understanding of how to care for yourself upon discharge. Upon discharge from the Emergency Department, you are responsible for making arrangements for follow-up care by a physician of your choice. Take all prescribed medications as directed. Return to the Emergency Department immediately for any new or worsening symptoms. You may call the Physician Referral phone number at [phone] to obtain a list of Physicians who are taking new patients. Prescriptions: Sulfamethoxazole/Tmp D.s. [Septra Ds] 1 ea PO BID #20 tab Referrals and Follow-Ups: Kim Trotter MD [Primary Care Provider] - Work Excuses: Return to School/Parent Work - Critical Care Note This patient required my direct & personal management of CC.: No Attestation - Physician/ JUANCHO Attestation Patient care was provided by Advanced Practice Provider:: No The physician spent face to face time with patient:: Yes Advanced Practice Provider documentation review:: Supervising physician onsite and consulted in the evaluation and care of this patient. The physician did have a face to face encounter with the patient. This chart was documented by the indicated scribe, (Sola Sandhu Scribe) and accurately reflects the services I performed and decisions made by me, Rufino Moore MD, as attested by the provider's signature.
[2019-03-17] MEDS ORDERED: NS 2,000 ML IV ONE (04:07)
[2019-03-17] MEDS ORDERED: GENTAMICIN IV PER PHARMACY MISC SCH (04:30)
[2019-03-17 05:22] LABS: ALBUMIN 4.2 g/dL (3.5-5.0); CALCIUM 8.9 mg/dL (8.8-10.2); CREATININE 1.2 mg/dL (0.7-1.2); POTASSIUM 4.1 mmol/L (3.5-5.1); TOTAL BILIRUBIN 1.2 mg/dL (0.20-1.00); TOTAL PROTEIN 6.4 g/dL (6.3-8.3)
--- NOTE | 2019-03-17 07:29 | Diag Imaging Result Doc PS360 ---
EXAM: US PELVIC MALE (COMPLETE) - 03/16/2019 HISTORY: urinary retention TECHNIQUE: Ultrasound pelvis COMPARISON: None. FINDINGS: The urinary bladder volume is 50 mL. There is possibly some generalized thickening of urinary bladder roman and 8-9 mm, but there is may be exaggerated by limited distention of the urinary bladder lumen. There is no discrete focal urinary bladder lesion identified. IMPRESSION: The urinary bladder volume is 50 mL. There is possible size and diffuse thickening of the urinary bladder roman at 8-9 mm, but this could be exaggerated by limited distention of the lumen. The it applications analyst radiologist provided preliminary results at 12:53 AM on 03/17/2019. Electronically signed by John Odonnell 03/17/2019 7:27 AM
[2019-03-17 07:30] LABS: INR 1.17; PROTIME 15.5 Seconds (11.0-16.0)
[2019-03-17 07:31] LABS: PTT 29.3 Seconds (22.3-41.8)
[2019-03-17] MEDS: NS IV SCH (07:54)
[2019-03-17] MEDS: GENTAMICIN IV SCH (07:54)
--- NOTE | 2019-03-17 07:57 | Diag Imaging Result Doc PS360 ---
EXAM: CHEST-1 VIEW - 03/17/2019 HISTORY: SEPSIS PROTOCOL TECHNIQUE: One view chest COMPARISON: 05/02/2016 FINDINGS: Heart size is normal. There is mild subsegmental atelectasis at the left base. The remainder the lungs appear essentially clear. There is no pleural effusion or pneumothorax identified. IMPRESSION: Mild subsegmental atelectasis at left base. No indication of pneumonia. Electronically signed by John Odonnell 03/17/2019 7:55 AM
[2019-03-17] MEDS ORDERED: ZOFRAN IV PRN (08:14)
[2019-03-17] MEDS ORDERED: TYLENOL PO PRN (08:14)
[2019-03-17] MEDS ORDERED: ATACAND PO PRN (08:15)
[2019-03-17] MEDS: NORVASC PO SCH (09:30)
[2019-03-17] MEDS: IMDUR PO SCH (09:30)
[2019-03-17] MEDS: ZOSYN 3.375 GM in NS 50 ML IV SCH ×3 (09:31→20:43)
[2019-03-17] MEDS: ZOLOFT PO SCH (09:31)
[2019-03-17] MEDS: FLOMAX PO SCH (09:31)
[2019-03-17] MEDS: GLUCOPHAGE XR PO SCH ×2 (11:17→16:45)
[2019-03-17] MEDS: NORCO-7.5 PO PRN ×2 (13:02→22:36)
[2019-03-17 14:39] LABS: URINE SOURCE CATH
[2019-03-17] MEDS ORDERED: PREPARATION H OINT TOP PRN (14:42)
[2019-03-17 14:44] LABS: BLOOD URINE MODERATE (NEGATIVE)
[2019-03-17] MEDS: HUMALOG (PARKWAY) SUBQ SCH ×2 (15:28→22:25)
[2019-03-17 15:29] LABS: COLOR YELLOW; UR EPITHELIAL CELLS <10 /HPF (<10); URINE BACTERIA NEGATIVE /HPF; URINE RBC TNTC /HPF (<10); URINE WBC TNTC /HPF (<10)
[2019-03-17 15:30] LABS: BILIRUBIN URINE NEGATIVE (NEGATIVE); GLUCOSE URINE NEGATIVE (NEGATIVE); KETONE URINE NEGATIVE (NEGATIVE); LEUKOCYTES URINE MODERATE (NEGATIVE); NITRITE URINE NEGATIVE (NEGATIVE); PROTEIN URINE 100 mg/dL (NEGATIVE); SP GRAVITY URINE 1.028; TURBIDITY URINE CLEAR (CLEAR); UROBILINOGEN URINE NORMAL (NORMAL)
[2019-03-17 15:43] LABS: URINE CASTS NONE SEEN; URINE CRYSTALS NONE SEEN; URINE SMALL ROUND CELLS NONE SEEN; URINE YEAST PRESENT
--- NOTE | 2019-03-17 16:02 | HISTORY AND PHYSICAL ---
PRIMARY CARE PHYSICIAN: Dr. Trotter. UROLOGIST: Dr. Ashton. CHIEF COMPLAINT: Dysuria. HISTORY OF PRESENT ILLNESS: Mr. Ibarra is a 68-year-old male who presents with past medical history of prostate cancer, hyperlipidemia, hypertension, heart disease, diabetes, BPH, and GERD. The patient presented to the ER last p.m. with complaints of being unable to urinate. When he does urinate, he has burning, nausea, vomiting, severe suprapubic tenderness for the past 2 days. The patient states that he had a TURP on 03/08/2019 and they left a Cramer in. He went to go see his physician Dr. Ashton on 03/15/2019, they removed his Cramer catheter and he has had these symptoms since he saw Dr. Ashton. The patient does deny any cough, congestion, flu-like symptoms, headache, vision changes, dizziness, neck pain, stiffness, excessive thirst, chest pain, palpitations, orthopnea, PND, leg edema, dyspnea, melena, hematemesis, diarrhea, constipation, muscle pain or weakness, syncope, dizziness, vertigo, numbness, or any other pertinent symptoms at this time. REVIEW OF SYSTEMS: A 10 point review of systems has been obtained and are negative except what is stated above in HPI. PAST MEDICAL HISTORY: 1. Prostate cancer. 2. Heart disease. 3. Hypertension. 4. Hyperlipidemia. 5. Diabetes mellitus. 6. Benign prostatic hypertrophy. 7. GERD. PAST SURGICAL HISTORY: 1. Lower back surgery. 2. Neck surgery. 3. TURP. 4. Prostate biopsy. 5. Multiple lithotripsies. 6. Multiple cystoscopies. SOCIAL HISTORY: Patient does live with his . He is retired from [employer]. He denies any smoking, alcohol or illicit drug use. The patient's pharmacy is [facility]. FAMILY HISTORY: Mother is . She from a [place]. Father is . He from an [place]. ALLERGIES: No known drug allergies. HOME MEDICATIONS: 1. Desyrel 50 mg p.o. at bedtime. 2. Sertraline 100 mg p.o. daily. 3. Metformin 250 mg p.o. b.i.d. 4. Imdur 30 mg p.o. daily. 5. Norvasc 5 mg p.o. daily. 6. Lipitor 40 mg p.o. at bedtime. 7. Flomax 0.4 mg p.o. daily. 8. Charlee 180 mg p.o. daily number. 9. Omeprazole 40 mg p.o. daily. 10. Atacand 32 mg p.o. daily p.r.n. LABS AND DIAGNOSTICS: White blood cell count 13.12, red blood cell count 4.57, hemoglobin 13.6, hematocrit 42.3, platelet count 158,000. PT 15.5 and INR 1.17. Sodium 138, potassium 4.1, BUN 20, creatinine 1.2 estimated GFR 60, glucose 156, magnesium 1.6. Troponin T 20, plasma lactate 0.8. Urinalysis shows a pH of 7.0, urine specific gravity of 1.01. Does show a large amount of blood. Does show a positive red blood cells, white blood cells a large amount, small amount of epithelials. Does show positive calcium oxalate and 3+ bacteria. Pelvic ultrasound does show the urinary bladder volume is 50 mL. There is possible size and diffuse thickening of the urinary bladder wall at 8.9 mm, but this could be exaggerated by limited extension of the lumen. Chest x-ray shows mild segmental atelectasis of the left base, but no indication of pneumonia. PHYSICAL EXAMINATION: VITAL SIGNS: Temperature a 100.3, pulse rate 118, respiratory rate 20, blood pressure 103/62, O2 saturation 90% on room air. GENERAL: This is a 68-year-old male. He is well nourished and well developed. He is in no acute distress. HEENT: Atraumatic, normocephalic. Pupils are equal, round, reactive to light. Mucous membranes are moist. NECK: Supple. No lymphadenopathy. Trachea is midline. No JVD. CARDIOVASCULAR: Regular rate and rhythm. No murmurs, gallops, or rubs appreciated. RESPIRATORY: Lung sounds are clear with equal chest excursion. Respirations are nonlabored. No accessory muscle usage. GASTROINTESTINAL: Abdomen is large is nontender, nondistended. Bowel sounds present x4. GENITOURINARY: CV tenderness noted. The patient is complaining of pain when voiding. NEUROLOGIC: Awake, alert, oriented, able to follow commands appropriately. No deficits noted. MUSCULOSKELETAL: Full distal strength noted. No abnormalities. EXTREMITIES: No clubbing, no cyanosis, no edema. DP and PT pulses present and palpable. SKIN: Warm, dry, intact. No rashes. No bruises. No diaphoresis. ASSESSMENT: 1. Acute cystitis. 2. History of transurethral resection of the prostate on 03/08 with catheter removal on 03/15. 3. History of benign prostatic hypertrophy and prostate cancer. 4. Diabetes mellitus type 2. 5. Hypertension, chronic. 6. Heart disease, chronic. 7. Gastroesophageal reflux disease. PLAN: We admitted this patient to the medical floor. We placed him on IV antibiotics of gentamicin and Zosyn. Cultures have been obtained of the urine. Started him on IV fluid hydration for 24 hours. The patient does have a history of heart disease. We did not want overload him. We will start him on Zofran for his nausea. I have given him some pain medicine [place] 7.5 mg IV q.6 hours p.r.n. I did put him on a diabetic diet as tolerated. I did speak with Dr. Ashton this morning. He did recommend putting a Cramer in the patient so I have ordered a Cramer. He recommended a coude catheter. I have ordered that. I discussed antibiotic treatment with him. He agreed that we were doing the proper antibiotic treatment. He recommended at discharge depending on culture that Bactrim or doxycycline was the proper antibiotic if that is what the culture resulted. He wanted to see the patient next week in clinic. Dr. Ashton was not surprised at the urinalysis results. He did not seem to think the patient has a UTI, but he said we will await the culture results. We have started the patient's home medications. I have placed him on a sliding scale and low-dose insulin and have reordered his home blood sugar medications. We have placed him on a residential monitor. We will do vital signs routine and all other further recommendations pending hospital course and laboratory data. Dictated by RANI Nicole for Ricardo Dawson MD cc: MD Domenic Boyer MD [facility]
[2019-03-17] MEDS: PYRIDIUM PO PRN ×2 (17:46→22:37)
[2019-03-17] MEDS: LIPITOR PO SCH (20:43)
[2019-03-18] MEDS: ZOSYN 3.375 GM in NS 50 ML IV SCH ×4 (01:56→21:38)
--- NOTE | 2019-03-18 04:41 | HISTORY AND PHYSICAL ---
ADDENDUM: Patient seen and examined by myself. Full note dictated and discussed with nurse practitioner. Patient presented to the hospital with a febrile illness, overall feeling ill. He just recently had a cystoscopy by Dr. Ashton and had a catheter removed yesterday. Since then, he has had burning and pain. We are going to admit him to the hospital, place him on antibiotics, check a urine culture. We have discussed with Dr. Ashton, who desires that he have the Cramer catheter placed back. Further orders as needed. cc: Ricardo Dawson MD
[2019-03-18] MEDS: PRILOSEC PO SCH (06:04)
[2019-03-18] MEDS: HUMALOG (PARKWAY) SUBQ SCH ×4 (06:14→21:39)
[2019-03-18] MEDS: NORCO-7.5 PO PRN ×2 (06:58→23:58)
[2019-03-18] MEDS: ZOLOFT PO SCH (08:15)
[2019-03-18] MEDS: FLOMAX PO SCH (08:15)
[2019-03-18] MEDS: NS IV SCH (08:15)
[2019-03-18] MEDS: IMDUR PO SCH (08:15)
[2019-03-18] MEDS: GLUCOPHAGE XR PO SCH ×2 (08:15→16:57)
[2019-03-18] MEDS: GENTAMICIN IV SCH (08:15)
[2019-03-18] MEDS: NORVASC PO SCH (08:15)
[2019-03-18] MEDS: PYRIDIUM PO PRN ×3 (09:45→23:54)
[2019-03-18] MEDS: LIPITOR PO SCH (21:38)
--- NOTE | 2019-03-19 00:12 | PROGRESS NOTE ---
DATE: 03/18/2019 SUBJECTIVE: The patient notes that he is having extreme bladder spasms at times. Denies any fevers or chills. Notes he has had some leakage around the catheter. PHYSICAL EXAMINATION: Temperature 97.8, pulse 87, respiratory rate 18, BP 114/58. General: The patient is pleasant. He is in no respiratory distress. He is lying in the bed watching television. HEENT: Normocephalic. Neck: Supple. Cardiovascular: Regular rate. Chest: Clear. Abdomen: Soft. Extremities: Moves all extremities. ASSESSMENT: 1. Gram-negative dolly urinary tract infection. Continue to await culture and sensitivity. Currently he has been on gentamicin and I believe Zosyn. 2. Leukocytosis. 3. Diabetes. 4. Hypertension. 5. Hyperlipidemia. 6. Benign prostatic hypertrophy (BPH). 7. History of prostate cancer with a transurethral resection of the prostate on 03/08/2019 and catheter removal 03/15/2019. PLAN: We will continue in the hospital until culture and sensitivity is complete. cc: Ricardo Dawson MD
[2019-03-19] MEDS: ZOSYN 3.375 GM in NS 50 ML IV SCH ×2 (02:29→08:30)
[2019-03-19] MEDS: HUMALOG (PARKWAY) SUBQ SCH (06:24)
[2019-03-19] MEDS: PRILOSEC PO SCH (06:32)
[2019-03-19] MEDS: GLUCOPHAGE XR PO SCH (08:30)
[2019-03-19] MEDS: FLOMAX PO SCH (08:31)
[2019-03-19] MEDS: ZOLOFT PO SCH (08:31)
[2019-03-19] MEDS: NORVASC PO SCH (08:31)
[2019-03-19] MEDS: IMDUR PO SCH (08:32)
[2019-03-19 12:02] VITALS: BP 125/66
[2019-03-19] MEDS ORDERED: KEFLEX PO SCH (13:00)
--- NOTE | 2019-03-20 02:06 | DISCHARGE SUMMARY ---
ADMISSION DATE: 03/17/2019 DISCHARGE DATE: 03/19/2019 DISCHARGE DIAGNOSIS: 1. Escherichia coli extended spectrum beta lactamase negative urinary tract infection. 2. Bladder outlet obstruction relieved with Cramer catheter. 3. History of prostate cancer. 4. Hypertension. 5. Hyperlipidemia. 6. Diabetes. 7. Benign prostatic hypertrophy. CONSULTATIONS: Dr. Ashton was notified over the phone. PROCEDURES: None. BRIEF HOSPITAL COURSE: The patient was admitted to the hospital. Initially had a Cramer catheter placed secondary to inability to urinate. His urine did grow ESBL negative E coli that was resistant to Levaquin. He was switched to oral antibiotics and tolerated well. On discharge, he is awake, alert. He is in no distress. Overall, he is feeling better and notes that he wants to go home. DISPOSITION: Patient will be discharged home. He will follow up outpatient with Dr. Ashton in the coming week. cc: Ricardo Dawson MD
== END 2019-03-19 13:25 | disposition home or self-care (01) ==
LOC: P.ED 23:17 → INTOOBSV 03-17 05:35 → P.MEDSURG 03-17 05:35
PROVIDERS: ATTEND Family Medicine

== ENCOUNTER 2019-04-23 18:21 | Inpatient (IN) ==
[2019-04-23] MEDS ORDERED: ZOFRAN IV ONE (18:39)
[2019-04-23] MEDS ORDERED: TORADOL IV ONE (18:39)
--- NOTE | 2019-04-23 19:16 | Diag Imaging Result Doc PS360 ---
EXAM: CT RENAL STONE SEARCH HISTORY: flank pain TECHNIQUE: CT abdomen and pelvis without oral or intravenous contrast COMPARISON: 09/15/2013 FINDINGS: No calcified gallstones or adjacent inflammation. No focal hepatic normality identified on this noncontrasted exam. No splenomegaly. No inflammation about the pancreas. Normal adrenal glands. There is a 4 x 6 x 8 mm stone in the upper right ureter with perinephric inflammation and mild hydronephrosis. Small nonobstructing left renal stone. No left-sided hydronephrosis. No aortic aneurysm. Moderate atherosclerosis. No bowel obstruction. No inflammation about the cecum. There are scattered colonic diverticula. No abscess. The urinary bladder is are not distended. There are degenerative changes throughout the lower thoracic and lumbar spine. IMPRESSION: 1.8 mm stone in the proximal right ureter with hydronephrosis and perinephric inflammation 2.Small nonobstructing left renal stone 3.Prominent atherosclerosis 4.Colonic diverticulosis This exam was performed using automated exposure control, adjustment of mA or kV according to patient size, and/or use of iterative reconstruction technique. Electronically signed by Elmer Blake 04/23/2019 7:13 PM
--- NOTE | 2019-04-23 19:23 | Diag Imaging Result Doc PS360 ---
EXAM: CHEST-1 VIEW HISTORY: abdominal pain TECHNIQUE: Single view COMPARISON: None. FINDINGS: The lungs are well expanded. The heart is not enlarged. The vessels are not distended. There are no infiltrates. No effusion identified. IMPRESSION: Negative exam. Electronically signed by Elmer Blake 04/23/2019 7:21 PM
[2019-04-23 19:34] LABS: INR 1.06; PROTIME 14.3 Seconds (11.0-16.0); PTT 29.2 Seconds (22.3-41.8)
[2019-04-23 19:42] LABS: BASO# 0.02 X1000 (0.0-0.2); BASO% 0.1 % (0.0-0.8); HEMATOCRIT 41.6 % (42.0-52.0); HEMOGLOBIN 13.8 g/dL (14.0-18.0); IMM GRAN# 0.05 X1000 (0.0-0.04); IMM GRAN% 0.3 % (0.0-0.5); LYMPH# 0.58 X1000 (1.2-3.4); LYMPH% 3.4 % (20.5-51.1); MCH 29.3 PG (27-31); MCHC 33.2 g/dL (33-37); MCV 88.3 FL (81-99); MONO# 1.08 X1000 (0.11-0.59); MONO% 6.3 % (1.7-9.3); MPV 9.2 FL (7.4-10.4); NEUT# 15.37 X1000 (1.4-6.5); NEUT% 89.9 % (42.2-75.2); PLT 441 X1000 (130-400); RBC 4.71 XMIL (4.7-6.1); RDW 13.4 % (11.5-14.5)
[2019-04-23 19:49] LABS: ALBUMIN 4.2 g/dL (3.5-5.0); CALCIUM 9.5 mg/dL (8.8-10.2); CREATININE 1.4 mg/dL (0.7-1.2); POTASSIUM 4.3 mmol/L (3.5-5.1); TOTAL BILIRUBIN 0.8 mg/dL (0.20-1.00); TOTAL PROTEIN 7.1 g/dL (6.3-8.3)
[2019-04-23] MEDS ORDERED: ZOSYN 3.375 GM in NS 50 ML IV ONE (19:53)
[2019-04-23] MEDS ORDERED: NS 1,000 ML IV ONE ×2 (19:56→20:15)
[2019-04-23] MEDS ORDERED: DILAUDID IV ONE (20:12)
[2019-04-23] MEDS ORDERED: SODIUM CHLORIDE 0.9% INJ ONE (20:13)
[2019-04-23] MEDS ORDERED: PHENERGAN IV ONE (20:13)
[2019-04-23] MEDS ORDERED: TORADOL IV PRN (20:15)
--- NOTE | 2019-04-23 20:22 | PROVIDER DOCUMENTATION ---
This chart was entered by Gianna Barcenas Scribe, acting as scribe for Denzel De La Rosa MD. HPI-Male Problem - General Chief Complaint: Abdominal Pain Stated Complaint: PAIN ON RIGHT SIDE Time Seen by Provider: 04/23/19 20:02 Source: patient Allergies/Adverse Reactions: Patient Allergies Allergy/AdvReac Type Severity Reaction Status Date / Time No Known Allergies Allergy Verified 04/23/19 19:44 Home Medications: Home Medication List Medication Instructions Recorded Confirmed Last Taken Type ATORVAstatin [Lipitor] 40 mg PO QHS 12/07/14 04/23/19 04/30/16 21:00 History Amlodipine [Norvasc] 5 mg PO DAILY 12/07/14 04/23/19 05/01/16 09:00 History Isosorbide Mononitrate E.r. [Imdur] 30 mg PO DAILY 12/07/14 04/23/19 05/01/16 09:00 History Sertraline HCl [Zoloft] 100 mg PO DAILY 12/07/14 04/23/19 04/30/16 08:00 History Tamsulosin [Flomax] 0.4 mg PO DAILY #30 capsule 05/01/16 04/23/19 05/01/16 15:00 Rx Candesartan Cilexetil [Atacand] 32 mg PO DAILY PRN 03/17/19 04/23/19 Unknown History Fexofenadine [Charlee] 180 mg PO DAILY 03/17/19 04/23/19 Unknown History Omeprazole 40 mg PO DAILY@0700 03/17/19 04/23/19 Unknown History Cyclobenzaprine [Flexeril] 1 tab PO TID 04/23/19 04/23/19 Unknown History Gabapentin 1 cap PO TID 04/23/19 04/23/19 Unknown History Methylprednisolone [Medrol Dosepak] 4 mg PO DIRECTED 04/23/19 04/23/19 Unknown History Oxycodone HCl/Acetaminophen 1 tab PO Q6HR PRN 04/23/19 04/23/19 Unknown History [Oxycodone-Acetaminophen 5-325] - History of Present Illness-Male Nature of Presenting Problem: 68 yowm with history of kidney stones who persents c/o 10/10 sharp rt sided flank pain w/nausea since last night. patient given IV Toradol on arrival with improvement of pain to 5/10. pt had recent laminectomy at [facility] in [place] 2 weeks ago. Denies new extremity weakness, incontinence, or numbness. no cp, vomiting, diarrhea, or fever. no allergies. nonsmoker, no alcohol or drug use. Location of Complaint: reports: right flank Radiation: reports: none Quality of Pain: reports: sharp Severity in ED: reports: mild Onset/Duration: reports: last night Timing: reports: improving Context/Activities at Onset: reports: none Urinary Symptoms: reports: retention Associated Symptoms: reports: none Associated Symptoms: reports: nausea. denies: chest pain, diarrhea, fever/chills, vomiting Similar Symptoms Previously?: Yes (hx renal stones ) Recently seen or treated by another doctor?: Yes (sx 2 weeks ago [facility] ) Review of Systems - Adult - REVIEW OF SYSTEMS - ADULT Constitutional: reports: no symptoms reported. denies: chills, fever, fatique Eyes: reports: no symptoms reported Ears, Nose, Mouth & Throat: reports: no symptoms reported Cardiovascular: reports: no symptoms reported. denies: chest pain Respiratory: reports: no symptoms reported Gastrointestinal: reports: see HPI, nausea. denies: abdominal pain, diarrhea, vomiting Genitourinary: reports: see HPI, flank pain (rt side), urinary retention. denies: dysuria, discharge, frequency Musculoskeletal: reports: no symptoms reported Integumentary: reports: no symptoms reported Neurological: reports: no symptoms reported Psychiatric: reports: no symptoms reported Endocrine: reports: no symptoms reported Hematologic/Lymphatic: reports: no symptoms reported Allergic/Immunologic: reports: no symptoms reported All Other Systems: Reviewed and Negative Past History - Adult - PAST MEDICAL HISTORY-ADULT Review of Records: reports: Nursing Assessment Review, Medications Reviewed, Social history reviewed & non-contributory. Major Childhood Illnesses: reports: denies history Cardiovascular: reports: HTN, hyperlipidemia Respiratory: reports: denies history Gastrointestinal: reports: denies history Obstetrical/Gynecological: reports: denies history Genitourinary: reports: kidney stones Musculoskeletal: reports: denies history Neurological: reports: denies history Endocrine/Immune: reports: Diabetes Other Conditions: reports: denies history - PRIOR SURGERIES/PROCEDURES Surgical/Procedure History: reports: recent surgery, back/neck, other (turp) - IMMUNIZATION STATUS Childhood Immunizations: See Nurse Assessment Flu Vaccine: See Nurse Assessment - FAMILY HISTORY Family History: reviewed, not pertinent - SOCIAL HISTORY Smoking: other (former smoker) Substance Use: none/never Physical Exam-General - PHYSICAL EXAM-ADULT Initial Vital Signs Reviewed: Yes - CONSTITUTIONAL General Appearance: alert, no apparent distress, obese. negative: lethargic, slow to respond, obtunded - EYES Eyes: PERRL/EOMI - HEAD, EARS, NOSE, MOUTH & THROAT HENMT: normocephalic/atraumatic, moist mucous membranes, normal ENT inspection - NECK Neck: non-tender, full range of motion, supple, normal inspection - RESPIRATORY Respiratory: chest non-tender, lungs clear, normal breath sounds - CARDIOVASCULAR Cardiovascular: normal peripheral pulses, regular rate, rhythm - GASTROINTESTINAL (ABDOMEN) Abdominal Exam: normal bowel sounds, soft, tenderness (rt flank on palp). negative: non tender, guarding, rigid, rebound - MUSCULOSKELETAL Back Exam: no vertebral tenderness, CVA tenderness (rt side to palp), other (healing lower lumbar sx incision). negative: normal inspection, no CVA tenderness, ecchymosis, swelling, vertebral tenderness Extremity: normal range of motion, non-tender, normal inspection - SKIN Integumentary: normal color, normal turgor, diaphoresis. negative: warm/dry, rash, swelling, tenderness - NEUROLOGIC Neurologic: grossly normal, no motor/sensory deficits - PSYCHIATRIC Psych/Mental Status: normal mood/affect, normal thought content, normal thought process, oriented x 3 Progress - PLAN OF CARE/RESULTS Progress/Plan/Lab Results: Vital Signs - 8 hr 04/23/19 18:31 Temperature 97.8 F Pulse Rate 133 H Respiratory Rate 22 Blood Pressure 119/86 O2 Sat by Pulse Oximetry 95 Laboratory Results - last 24 hr 04/23/19 04/23/19 04/23/19 18:47 18:47 18:47 WBC 17.10 H RBC 4.71 Hgb 13.8 L Hct 41.6 L MCV 88.3 MCH 29.3 MCHC 33.2 RDW Std Deviation 13.4 Plt Count 441 H MPV 9.2 Immature Gran % (Auto) 0.3 Neut % (Auto) 89.9 H Lymph % (Auto) 3.4 L Karnes % (Auto) 6.3 Eos % (Auto) 0.0 Baso % (Auto) 0.1 Immature Gran # (Auto) 0.05 H Neut # (Auto) 15.37 H Lymph # (Auto) 0.58 L Karnes # (Auto) 1.08 H Eos # (Auto) 0.00 Baso # (Auto) 0.02 PT INR PTT (Actin FS) Sodium 138 Potassium 4.3 Chloride 97 L Carbon Dioxide 21 L Anion Gap 20 BUN 24 H Creatinine 1.4 H Estimated GFR/1.73 m2 50 BUN/Creatinine Ratio 17 Glucose 161 H Calculated Osmolality 283 Calcium 9.5 Total Bilirubin 0.80 AST 30 ALT 37 Alkaline Phosphatase 98 Creatine Kinase 86 Troponin T High Sens Total Protein 7.1 Albumin 4.2 Globulin 3.0 Albumin/Globulin Ratio 1.0 Amylase 43 Lipase 20 Plasma Lactate 04/23/19 04/23/19 04/23/19 18:47 18:47 18:47 WBC RBC Hgb Hct MCV MCH MCHC RDW Std Deviation Plt Count MPV Immature Gran % (Auto) Neut % (Auto) Lymph % (Auto) Karnes % (Auto) Eos % (Auto) Baso % (Auto) Immature Gran # (Auto) Neut # (Auto) Lymph # (Auto) Karnes # (Auto) Eos # (Auto) Baso # (Auto) PT 14.3 INR 1.06 PTT (Actin FS) 29.2 Sodium Potassium Chloride Carbon Dioxide Anion Gap BUN Creatinine Estimated GFR/1.73 m2 BUN/Creatinine Ratio Glucose Calculated Osmolality Calcium Total Bilirubin AST ALT Alkaline Phosphatase Creatine Kinase Troponin T High Sens 20 H Total Protein Albumin Globulin Albumin/Globulin Ratio Amylase Lipase Plasma Lactate 2.1 Orders Category Date Time Status Admit - [facility] Routine AdmDCTranf 04/23/19 20:15 Active Activity - Strict Bedrest ORDERED Care 04/23/19 20:15 Active Cardiac Monitoring NOW Care 04/23/19 18:36 Completed Cramer Cath Insertion ORDERED Care 04/23/19 20:43 Completed IV Insertion NOW Care 04/23/19 18:36 Completed NEWS Score >or=5:Order NEWS Bundle S.O. NOW Care 04/23/19 18:35 Completed Notify Provider of NEWS Score NOW Care 04/23/19 18:36 Active Nursing- MD Consult Request ROUTINE Care 04/23/19 20:21 Active Resuscitation Status Routine Care 04/23/19 20:15 Ordered Saline Loc DIRECTED Care 04/23/19 18:36 Active Vital Signs Order Q 4-HR ASSESS Care 04/23/19 20:15 Active Physician/Provider Consults Routine Cons 04/23/19 20:20 Ordered NPO Diet 04/23/19 18:36 Active CHEST-1 VIEW [RAD] Stat Exams 04/23/19 18:[address] RENAL STONE SEARCH [CT] Stat Exams 04/23/19 18:39 Completed AMYLASE [CHEM] Stat Lab 04/23/19 18:47 Completed BLOOD CULTURE [BLDCUL] Stat Lab 04/23/19 18:44 Results CBC WITH ELECTRONIC DIFF [HEME] Stat Lab 04/23/19 18:47 Completed CK PROFILE [SP CHEM] Stat Lab 04/23/19 18:47 Completed COMPREHENSIVE METABOLIC PANEL [CHEM] Stat Lab 04/23/19 18:47 Completed LACTATE, PLASMA [CHEM] Q3H Lab 04/23/19 18:47 Completed LACTATE, PLASMA [CHEM] Stat Lab 04/23/19 23:40 Completed LACTATE, PLASMA [CHEM] Stat Lab 04/24/19 00:47 Ordered LIPASE [CHEM] Stat Lab 04/23/19 18:47 Completed PROTIME WITH INR [COAG] Stat Lab 04/23/19 18:47 Completed PTT [COAG] Stat Lab 04/23/19 18:47 Completed TROPONIN T HIGH SENSITIVITY Stat Lab 04/23/19 18:47 Completed URINALYSIS W/POSS RFLX CULT [URINALYSIS] Stat Lab 04/23/19 21:38 Ordered 0.9% Sodium Chloride Inj [Ns] 1,000 ml Med 04/23/19 20:15 Active IV 125 mls/hr 0.9% Sodium Chloride Inj [Ns] 1,000 ml Med 04/23/19 19:56 Discontinued IV 999 mls/hr Hydromorphone [Dilaudid] Med 04/23/19 20:12 Discontinued 0.5 mg IV NOW ONE Ketorolac [Toradol] Med 04/23/19 20:15 Active 15 mg IV Q4H PRN PRN Ketorolac [Toradol] Med 04/23/19 18:39 Discontinued 30 mg IV NOW ONE Morphine Med 04/23/19 20:50 Active 2 mg IV Q2H PRN PRN Ondansetron [Zofran] Med 04/23/19 18:39 Discontinued 4 mg IV NOW ONE Ondansetron [Zofran] Med 04/23/19 20:15 Active 4 mg IV Q4H PRN PRN Piperacillin/Tazobactam [Zosyn] 3.375 gm Med 04/23/19 19:53 Discontinued 0.9% Sodium Chloride Inj [Ns] 50 ml IV NOW Piperacillin/Tazobactam [Zosyn] 3.375 gm Med 04/24/19 02:00 Active 0.9% Sodium Chloride Inj [Ns] 50 ml IV Q6H Promethazine [Phenergan] Med 04/23/19 20:13 Discontinued 12.5 mg IV NOW ONE Sodium Chloride 0.9% Med 04/23/19 20:13 Discontinued 10 ml INJ NOW ONE O2 Per Protocol Stat Oth 04/23/19 18:36 Active Transfer/Admit Order [TRANSFER] Routine Transfer 04/23/19 20:19 Completed Result Diagrams: 04/23/19 18:47 04/23/19 18:47 - XRAY 1 XRAY Study: Chest Impression: Normal, See EMR Report ( EXAM: CHEST-1 VIEW HISTORY: abdominal pain TECHNIQUE: Single view COMPARISON: None. FINDINGS: The lungs are well expanded. The heart is not enlarged. The vessels are not distended. There are no infiltrates. No effusion identified. IMPRESSION: Negative exam.) - CT/MRI 1 CT Study: Renal Stone Impression: Abnormal, See EMR Report ( EXAM: CT RENAL STONE SEARCH HISTORY: flank pain TECHNIQUE: CT abdomen and pelvis without oral or intravenous contrast COMPARISON: 09/15/2013 FINDINGS: No calcified gallstones or adjacent inflammation. No focal hepatic normality identified on this noncontrasted exam. No splenomegaly. No inflammation about the pancreas. Normal adrenal glands. There is a 4 x 6 x 8 mm stone in the upper right ureter with perinephric inflammation and mild hydronephrosis. Small nonobstructing left renal stone. No left-sided hydronephrosis. No aortic aneurysm. Moderate atherosclerosis. No bowel obstruction. No inflammation about the cecum. There are scattered colonic diverticula. No abscess. The urinary bladder is are not distended. There are degenerative changes throughout the lower thoracic and lumbar spine. IMPRESSION: 1.8 mm stone in the proximal right ureter with hydronephrosis and perinephric inflammation 2.Small nonobstructing left renal stone 3.Prominent atherosclerosis 4.Colonic diverticulosis This exam was performed using automated exposure control, adjustment of mA or kV according to patient size, and/or use of iterative reconstruction technique. Electronically signed by Elmer Blake 04/23/2019 7:13 PM 04/23/191912 Interpreting Physician: Elmer Blake MD Dictated Date/Time: 04/23/191909 cc: Denzel De La Rosa MD; Kim Trotter MD) - CONSULTS/PCP/HOSPITALIST Notification #1 *Consult/PCP/Hospitalist*: Dr. Rosa Time Discussed: 19:58 Consult Disposition: Admit Departure - Departure Date of Disposition Decision: 04/23/19 Time of Disposition Decision: 22:29 DIAGNOSIS: Pyelonephritis, Ureteral calculus Leukocytosis Qualifiers: Leukocytosis type: unspecified Qualified Code(s): D72.829 - Elevated white blood cell count, unspecified BPH (benign prostatic hyperplasia) Qualifiers: Lower urinary tract symptom presence: unspecified whether lower urinary tract symptoms present Qualified Code(s): N40.0 - Benign prostatic hyperplasia without lower urinary tract symptoms Disposition: ADMITTED INPATIENT 09 Certified Medical Emergency: Emergent Condition: Stable - Critical Care Note This patient required my direct & personal management of CC.: No Attestation - Physician/ JUANCHO Attestation Patient care was provided by Advanced Practice Provider:: No The physician spent face to face time with patient:: Yes Advanced Practice Provider documentation review:: Supervising physician onsite and consulted in the evaluation and care of this patient. The physician did have a face to face encounter with the patient. This chart was documented by the indicated scribe, (Gianna Barcenas Scribe) and accurately reflects the services I performed and decisions made by me, Denzel De La Rosa MD, as attested by the provider's signature.
[2019-04-23] MEDS ORDERED: MORPHINE IV PRN (20:50)
[2019-04-24] MEDS: ZOSYN 3.375 GM in NS 50 ML IV SCH ×5 (00:11→20:53)
[2019-04-24] MEDS: NS 1,000 ML IV SCH ×3 (00:11→22:09)
--- NOTE | 2019-04-24 01:12 | HISTORY AND PHYSICAL ---
PRIMARY CARE PHYSICIAN: Dr. Trotter. CHIEF COMPLAINT: Right flank pain x1 week. HISTORY OF PRESENTING ILLNESS: A 68-year-old male with a history of hypertension, coronary artery disease, diabetes mellitus type 2 and benign prostatic hypertrophy, who had presented to emergency department with 1-week history of having persistent right flank pain. The patient states the pain was worsening. Subsequently, he had come to [facility]. During his evaluation there he had imaging done which did show a 1.8 mm stone in the right ureter with hydronephrosis and perinephric stranding. His case was discussed with urologist who recommended the patient be transferred to [facility] for further evaluation and management. At the time of my examination, patient denied any headache, fever, chills, chest pain, shortness of breath or any weight changes, but complained of right flank pain. PAST MEDICAL HISTORY: Includes hypertension, coronary artery disease, diabetes mellitus type 2, BPH. PAST SURGICAL HISTORY: Back surgery 2 weeks ago, neck surgery, TURP, lithotripsy, cystoscopies. ALLERGIES: No known drug allergies. CURRENT MEDICATIONS: Include Flexeril 10 mg p.o. t.i.d., gabapentin 300 mg p.o. t.i.d., methylprednisone as directed, Percocet 5 q.6 hours, amlodipine 5 mg p.o. daily, atorvastatin 40 mg p.o. at bedtime, Atacand 32 mg p.o. daily, isosorbide mononitrate 330 mg p.o. daily, sertraline 100 mg p.o. daily, tamsulosin 0.4 mg p.o. daily. SOCIAL HISTORY: No history of smoking, alcohol or illicit drug use. FAMILY HISTORY: Positive for coronary artery disease in father. REVIEW OF SYSTEMS: Fourteen point review of systems is as listed in HPI. Other systems negative. PHYSICAL EXAMINATION: GENERAL: Cooperative, friendly male. He is resting more comfortably now. VITAL SIGNS: Temperature 97.9 degrees, pulse 110, respiration 18, blood pressure 117/78. HEENT: Atraumatic, normocephalic. Extraocular movements intact. PERRLA. NECK: No masses. CHEST: Clear to auscultation. CARDIOVASCULAR: Regular rate and rhythm. S1, S2. ABDOMEN: Soft. Positive bowel sounds. BACK: There is some right flank tenderness. EXTREMITIES: No edema. NEUROLOGIC: Nonfocal. GENITOURINARY: No bladder distention. SKIN: Warm. LABORATORIES AND STUDIES: WBC 17.10, hemoglobin 13.8, hematocrit 41.6, platelets 441,000. Sodium 138, potassium 4.3, chloride 97, CO2 is 21, BUN is 24, creatinine is 1.4, glucose is 161. Renal CT shows 1.8 mm stone in proximal right ureter with hydronephrosis and perinephric inflammation. ASSESSMENT: A 68-year-old male with a history of hypertension, coronary artery disease, diabetes mellitus type 2, and benign prostatic hypertrophy, who recently underwent back surgery 2 weeks ago. Presented with worsening right flank pain. He was evaluated in the emergency department at [facility] and was found to have a 1.8 mm stone in the right ureter with hydronephrosis and perinephric inflammation. His case was discussed with Urology, who recommended the patient be transferred to [facility] for further evaluation and management. 1. Right ureteral infected stone with hydronephrosis. 2. Possible pyelonephritis. 3. Hypertension. 4. Diabetes mellitus type 2. PLAN: 1. The patient will be admitted to medical floor with telemetry. 2. We will start patient on IV antibiotics. 3. We will consult Urology. 4. We will give patient adequate pain control. 5. We will monitor blood pressure closely. Resume antihypertensive agent. 6. We will monitor blood glucose and put patient on sliding scale insulin regimen. 7. Put patient on DVT prophylaxis with SCDs. 8. We will continue to follow and reassess, make further recommendation based on patient's clinical course. cc: Gianfranco Rosa MD
[2019-04-24] MEDS: ZOFRAN IV PRN ×2 (02:21→18:15)
[2019-04-24] MEDS ORDERED: LOPRESSOR IV ONE (02:55)
[2019-04-24] MEDS ORDERED: LANOXIN IV ONE (02:55)
[2019-04-24] MEDS: TYLENOL PO PRN ×2 (04:03→17:23)
[2019-04-24] MEDS: PRILOSEC PO SCH (06:14)
[2019-04-24 07:36] LABS: BASO# 0.01 X1000 (0.0-0.2); BASO% 0.1 % (0.0-0.8); HEMATOCRIT 38.2 % (42.0-52.0); HEMOGLOBIN 12.3 g/dL (14.0-18.0); IMM GRAN# 0.05 X1000 (0.0-0.04); IMM GRAN% 0.3 % (0.0-0.5); LYMPH# 0.45 X1000 (1.2-3.4); LYMPH% 2.7 % (20.5-51.1); MCH 29.1 PG (27-31); MCHC 32.2 g/dL (33-37); MCV 90.3 FL (81-99); MONO# 1.41 X1000 (0.11-0.59); MONO% 8.6 % (1.7-9.3); MPV 9.3 FL (7.4-10.4); NEUT# 14.48 X1000 (1.4-6.5); NEUT% 88.3 % (42.2-75.2); PLT 316 X1000 (130-400); RBC 4.23 XMIL (4.7-6.1); RDW 13.7 % (11.5-14.5)
--- NOTE | 2019-04-24 07:39 | CONSULTATION ---
DATE OF CONSULTATION: 04/24/2019 CHIEF COMPLAINT: Right flank pain with right ureteral stone. HISTORY OF PRESENT ILLNESS: Mr. Ibarra is a 68-year-old with hypertension, coronary artery disease, diabetes type 2, BPH, and history of nephrolithiasis, who presented to the emergency room yesterday with a 1-week history of worsening right flank pain. The pain worsened yesterday. He was having shakes and chills, was evaluated in ED with tachycardic, afebrile with normal blood pressure. A CT scan was performed which showed an 8 mm stone in the right ureter with associated hydronephrosis and perinephric stranding. The patient was transitioned to [facility] for evaluation by urology. This morning, the patient denies any fevers or chills. He states that he has had difficulty with urination and had a catheter inserted overnight. He remains afebrile. He remains tachycardic to 117 this morning. Denies any hematuria or dysuria. The pain seems to be better controlled. He states he has not passed any stones. The patient's renal function showed a creatinine of 1.4 with a white blood cell count of 17. The patient states he recently had a procedure by Dr. Ashton to "open up his urethra." He has had a prior transurethral resection of prostate by Dr. Astorga as well as multiple procedures for kidney stones in the past. PAST MEDICAL HISTORY: 1. Hypertension. 2. Coronary artery disease. 3. Type 2 diabetes. 4. BPH. 5. Back pain. 6. Urethral stricture disease. PAST SURGICAL HISTORY: 1. Back surgery 2 weeks ago. 2. Spinal fusion. 3. Transurethral resection of prostate. 4. Lithotripsy. 5. Cystoscopy for scar tissue. ALLERGIES: No known drug allergies. HOME MEDICATIONS: 1. Flexeril 10 mg p.o. t.i.d. 2. Gabapentin 300 mg p.o. t.i.d. 3. Methylprednisolone. 4. Percocet 5/325 q.6 hours. 5. Amlodipine 5 mg daily. 6. Atorvastatin 40 mg at bedtime. 7. Atacand 32 mg p.o. daily. 8. Isosorbide mononitrate 330 mg p.o. daily. 9. Sertraline 100 mg p.o. daily. 10. Flomax 0.4 mg. SOCIAL HISTORY: Denies tobacco, alcohol, or illicit drug use. FAMILY HISTORY: Denies family history of malignancy. REVIEW OF SYSTEMS: A 12-point review of systems was performed with all pertinent positives and negatives in the HPI. PHYSICAL EXAMINATION: Vital Signs: Temperature 99.5 degrees, heart rate 117, blood pressure 145/77, oxygen saturation 94% on room air. General: No acute distress. Resting comfortably in bed. Alert and oriented x3. Respiratory: Good respiratory effort without audible wheezing or rales. HEENT: Normocephalic, atraumatic. Pupils equal, round, reactive to light. Neck: Trachea midline. Abdomen: Soft, nontender, nondistended. : No suprapubic tenderness. No CVA tenderness. Urethral catheter in place, draining clear yellow urine. Normal phallus with orthotopic meatus. Skin: No skin lesions or rashes. Neurologic: Gross motor and sensory intact. Musculoskeletal: Moving all extremities. LABS: White blood cell count 17.1, hemoglobin 13.8, hematocrit 41.6, platelets 441,000. Sodium 138, potassium 4.3, chloride 96, bicarb 21, anion gap 20, BUN 24, creatinine 1.4, glucose 161. Lactate 1.7 this morning. IMAGING: CT of the abdomen and pelvis, images reviewed which showed what appears to be two areas of stone with obvious stone in the upper part of the right ureter as well as some calcified debris above and below this area. ASSESSMENT AND PLAN: Mr. Ibarra is a 68-year-old who presented to the emergency room complaining of right flank pain. He has been having pain for approximately 1 week now. He has a known history of nephrolithiasis as well as transurethral resection of prostate for benign prostatic hypertrophy in the past. Seen by Dr. Ashton as well as Dr. Astorga regarding this. The patient had a CT scan performed which showed a stone obstructing his ureter with perinephric stranding and proximal hydronephrosis. It appears that the patient may have multiple stones versus one large stone and several areas of stone debris. Due to patient having fevers and chills, as well as elevated white blood cell count, I recommended cystoscopy and right ureteral stent placement today to optimize his drainage. The patient's pain seems to be better controlled today but he continues to have episodes of chills and had slight acute kidney injury. We will plan to place a stent today in preparation for either ureteroscopic removal versus extracorporeal shockwave lithotripsy in the future. Risks, benefits, and alternatives of the procedure were discussed with the patient and his brother, and they elected to proceed. cc: Reece Cavanaugh MD MTDD
[2019-04-24 07:47] LABS: CALCIUM 8.4 mg/dL (8.8-10.2); CREATININE 1.7 mg/dL (0.7-1.2); POTASSIUM 3.5 mmol/L (3.5-5.1)
[2019-04-24] MEDS ORDERED: ROBINUL ONE (07:56)
[2019-04-24] MEDS ORDERED: XYLOCAINE-MPF 2% ONE (07:56)
[2019-04-24] MEDS ORDERED: DIPRIVAN 1% ONE (07:57)
[2019-04-24] MEDS ORDERED: FENTANYL ONE (07:58)
[2019-04-24] MEDS ORDERED: ZOFRAN ONE (08:00)
[2019-04-24] MEDS ORDERED: DECADRON ONE (08:00)
[2019-04-24] MEDS ORDERED: NEO-SYNEPHRINE ONE (08:19)
[2019-04-24] MEDS ORDERED: SODIUM CHLORIDE 0.9% 10 ML ONE (08:19)
[2019-04-24] MEDS: LR 500 ML ONE (09:08)
[2019-04-24 09:22] LABS: BANDS 10 % (0-1); LYMPHS 2 % (21-51); MONO 2 % (1-9); SEGS 86 % (42-75)
--- NOTE | 2019-04-24 10:21 | OPERATIVE NOTE ---
PROCEDURE DATE: 04/24/2019 PREOPERATIVE DIAGNOSES: 1. Right hydronephrosis. 2. Right ureteral stone. 3. Urinary tract infection. POSTOPERATIVE DIAGNOSIS: 1. Right hydronephrosis. 2. Right ureteral stone. 3. Urinary tract infection. PROCEDURE PERFORMED: 1. Cystoscopy with right retrograde pyelogram. 2. Right ureteral stent placement. SURGEON: Reece Cavanaugh MD ATTACHER: None. COMPLICATIONS: None. BLOOD LOSS: Zero. DRAINS: 1. A 6 x 26 cm right ureteral stent. 2. A 16-[place] Cramer catheter. SPECIMEN REMOVED: None. ANESTHESIA: LMA. INDICATIONS FOR PROCEDURE: Mr. Link Ibarra is a 68-year-old with history of nephrolithiasis, who presented in consultation regarding obstructing uropathy with worsening renal function and concern for pyelonephritis. He states he has had pain for approximately 1 week and this progressively worsened yesterday with associated chills and presented to the emergency room for evaluation. A CT scan performed showed an obstructing 8 mm stone in the proximal ureter with associated straining of the kidney and ureter itself. The patient's white blood cell count was 17 with creatinine of 1.4. The patient was evaluated this morning. The renal function worsened to creatinine of 1.7 and white blood cell count remains elevated at 16. Talking with him, I recommended cystoscopy with right retrograde pyelogram and placement of right ureteral stent due to concern of infection. Risks, benefits, alternatives of the procedure were discussed with the patient and his brother and they elected to proceed. DESCRIPTION OF PROCEDURE: After informed consent was signed, patient was brought to the operative room and placed on table in supine position. The patient received preoperative antibiotics with Zosyn and underwent LMA placement. He was positioned to a dorsal lithotomy position, was prepped and draped in usual sterile fashion. A preoperative time-out was then performed with all parties in agreement, including anesthesia, surgical, and nursing staff. At this time, I inserted a 21- [place] cystourethroscope through the urethra showing no evidence of any papillary lesions. There was slight trauma in the bulbar urethra that seemed to correlate with prior surgery by Dr. Ashton earlier last month. Entered into the prostate and prostate appeared to be widely patent with evidence of prior TURP defect. Once in the bladder, the entirety of the bladder was inspected with no diverticulum, cellules, trabeculations or papillary lesions. Slight erythema was seen in the posterior wall, likely related to the recently placed catheter. Both ureteral orifices were visualized. A small amount of sedimentary urine was seen extruding from the right ureteral orifice at which point an open-ended catheter was passed through the scope, flushed all bubbles and the right ureteral orifice was then cannulized. Omnipaque was then injected which outlined a normal ureter. It was difficult to get the contrast past the obstructing stone. At which point using an open-ended catheter, the ZIPwire was passed through the scope and up into the collecting system itself. Wire was left in place and open catheter was removed. A 6 x 26 cm stent was then passed over the wire with good curl seen within the kidney, endoscopically visualized in the bladder. Sedimentary urine returned from the kidney after placement of stent. This was irrigated out of the bladder. The patient's bladder was left slightly full and a 16-[place] Cramer catheter inserted through the urethra and inflated with 10 mL sterile water and placed to gravity drainage with StatLock on the lower extremity. The patient was then awoken and was taken to recovery in stable condition. The patient will be monitored inpatient. We will continue on IV antibiotics due to concern over episode of obstructive uropathy and pyelonephritis. We will continue to monitor from urologic standpoint. cc: MD JANI Flores
[2019-04-24] MEDS: NORVASC PO SCH (12:49)
[2019-04-24] MEDS: IMDUR PO SCH (12:49)
[2019-04-24] MEDS: ZOLOFT PO SCH (12:49)
[2019-04-24] MEDS: FLOMAX PO SCH (12:49)
--- NOTE | 2019-04-24 16:04 | PROGRESS NOTE ---
DATE: 04/24/2019 This is a 68-year-old who was admitted early this morning I believe right flank pain for about a week. He is followed by Dr. Kim Trotter, 68-year-old with history of hypertension, coronary artery disease, diabetes mellitus type 2, benign prostatic hypertrophy, presented the emergency department with 1-week history of having persistent right flank pain. The patient states that the pain was worsening, subsequently went to [facility]. During evaluation there imaging done showed a 1.8 mm stone in the right ureter and hydronephrosis and perinephric stranding. His case was discussed with Urology and recommended patient be transferred over here and plan is to go to have retrograde cystoscopy, ureteroscopy, he is on antibiotics and getting normal saline at 125 mL an hour, Norvasc 5 mg a day, isosorbide mononitrate 30 mg p.o. daily, Zoloft 100 mg p.o. daily, Flomax 0.4 mg daily, Zosyn 3.375 g IV q.6. LAB: Reviewed. Elevated white count 16,400, hematocrit 38, platelet count 316,000. Sodium 136, potassium 3.5, chloride 98, BUN 22, creatinine 1.7, blood sugars 137, 127, 120, 128, note the creatinine was 1.4 yesterday up to 1.7 now. cc: Elijah Hopkins MD
[2019-04-24] MEDS ORDERED: B & O 16A SUPP PR ONE (20:03)
[2019-04-24] MEDS ORDERED: SODIUM CHLORIDE 0.9% INJ PRN (20:08)
[2019-04-24] MEDS ORDERED: PHENERGAN IV PRN (20:08)
[2019-04-24] MEDS ORDERED: PYRIDIUM PO ONE (20:09)
[2019-04-24] MEDS: LIPITOR PO SCH (20:57)
[2019-04-25] MEDS: ZOSYN 3.375 GM in NS 50 ML IV SCH ×4 (01:37→20:21)
[2019-04-25] MEDS: LR 500 ML ONE (01:38)
[2019-04-25] MEDS: PRILOSEC PO SCH (06:02)
--- NOTE | 2019-04-25 07:36 | Diag Imaging Result Doc PS360 ---
EXAM: RETROGRADES 2 OR 3 FILMS 04/24/2019 HISTORY: R STENT PLACEMENT TECHNIQUE: 16 images COMMENT: Retrograde pyelography is performed on the right demonstrating filling defect and obstruction in the proximal ureter. A stent was subsequently placed by Dr. Cavanaugh. IMPRESSION: Proximal right ureteral stone. Right stent placement. Electronically signed by Varun Calles 04/25/2019 7:34 AM
--- NOTE | 2019-04-25 07:47 | PROGRESS NOTE ---
DATE: 04/25/2019 SUBJECTIVE: Postoperative day 1 from cystoscopy, right retrograde pyelogram, and right ureteral stent placement. Overall, the patient seems to be doing well. He did complain of some nausea yesterday, which has improved this morning. The patient had a T-max of 100 degrees yesterday afternoon, has been afebrile since then. The patient's tachycardia has improved. He has been in the high 90s where he previously was in the mid 110s. He had some burning with the catheter in place, but denies any hematuria or flank pain. OBJECTIVE: Vital Signs: Temperature 98 degrees, heart rate 92, blood pressure 132/74, oxygen saturation 96% on nasal cannula. General: No acute distress. Resting comfortably in bed. Alert and oriented x3. Respiratory: Good respiratory effort without audible wheezing or rales. Abdomen: Soft, nontender, nondistended. Genitourinary: No suprapubic tenderness. No CVA tenderness. Urethral catheter in place draining clear yellow urine. LABS: Microbiology is showing gram-negative rods in his blood. Urine culture has not returned. ASSESSMENT AND PLAN: Mr. Ibarra is a 68-year-old with hypertension, coronary artery disease, type 2 diabetes, benign prostatic hypertrophy, and chronic back pain, and a history of bulbar urethral stricture disease, who presents in consultation regarding obstructing right ureteral stone with hydronephrosis, flank pain, and concern for urosepsis. The patient was taken emergently to the operating room and underwent cystoscopy and ureteral stent placement yesterday. The patient clinically seems to be doing better. Tachycardia has improved. He did have a temperature maximum of 100 degrees yesterday. He states he has continued to have occasional chills, but less noticeable than previously. The patient's blood pressures have all been normal. The patient's microbiology does show positive blood cultures. Urine culture has not returned yet. We will continue with indwelling catheter until labs returned. If creatinine is downtrending, white blood cell count is downtrending, could consider removal of catheter. The patient has a history of benign prostatic hypertrophy, as well as urethral stricture disease. The patient's urethra seems to be widely patent on cystoscopy yesterday, and the patient has widely patent transurethral resection of prostate defect. We will continue to monitor inpatient and tailor antibiotics to culture specific antibiotic choices. We will continue with indwelling catheter for the time being. Please call with questions or concerns. cc: Reece Cavanaugh MD MTDD
[2019-04-25] MEDS: ZOLOFT PO SCH (08:32)
[2019-04-25] MEDS: PERIDEX MT SCH ×2 (08:32→20:21)
[2019-04-25] MEDS: FLOMAX PO SCH (08:32)
[2019-04-25] MEDS: NORVASC PO SCH (08:32)
[2019-04-25] MEDS: IMDUR PO SCH (08:32)
[2019-04-25] MEDS: TYLENOL PO PRN (08:39)
--- NOTE | 2019-04-25 10:33 | PROGRESS NOTE ---
DATE: 04/25/2019 Mr. Ibarra is 68-year-old who came in with right flank pain. He has a history of hypertension, coronary artery disease, diabetes mellitus type 2, benign prostatic hypertrophy. Presented to the emergency department after having 1 week of persistent right flank pain. Patient states the pain was worsening. Subsequently went to [facility]. During his evaluation there, had imaging done that showed a 1.8 mm stone in the right ureter with hydronephrosis and perinephric stranding. His case was discussed with urology and recommend that the patient be transferred to [facility] for further evaluation and management. At the time of exam, patient denied headache, fever, chills, chest pain, shortness of breath, or any weight changes but complained of right flank pain. PAST MEDICAL HISTORY: Includes: 1. Hypertension. 2. Coronary artery disease. 3. Diabetes mellitus type 2. 4. Benign prostatic hypertrophy. PAST SURGICAL HISTORY: Back surgery 2 weeks ago, neck surgery, TURP, lithotripsy, and cystoscopies. Admitted with: 1. Right hydronephrosis, suspected pyelonephritis, and an infected stone possible. 2. Hypertension. 3. Diabetes mellitus type 2. EXAMINATION: Today, temperature is 97.8 degrees, pulse 98, respirations 16, blood pressure 132/81. Pupils are equal and round. Lungs are clear in all lung casas. Cardiovascular Examination: Regular rhythm and rate without murmurs or S3. Urine output was really almost 5 L. ASSESSMENT AND PLAN: A 68-year-old with hypertension, coronary artery disease, diabetes mellitus type 2, benign prostatic hypertrophy, chronic back pain, history of bulbar urethral stricture disease, who presented with right ureteral stone, hydronephrosis, and flank pain. Concern for urosepsis. He was taken emergently to the operating room and underwent cystoscopy, ureteral stent placement. Clinically, he seems to be doing better. Continue present antibiotics. Await full results of cultures. His blood cultures from 04/23/2019, gram-negative dolly, awaiting identification. Urine culture also gram-negative dolly, greater than 100,000. REVIEW OF HIS ORDERS: He is on Lipitor 40 mg a day, Norvasc 5 mg a day, isosorbide mononitrate 30 mg p.o. daily, Toradol 15 mg IV q.4 hours, Zoloft 100 mg p.o. daily, Flomax 0.4 mg daily, Zosyn 3.375 g IV q.6, digoxin 250 mcg was given 1 dose I think yesterday. Getting normal saline at 125 mL an hour, which was discontinued. He is eating. I think he is on a diabetic diet. We will follow his sugars. Last several sugars 120, 128, 128, and 89. cc: Elijah Hopkins MD
[2019-04-25] MEDS: LIPITOR PO SCH (20:21)
[2019-04-26] MEDS: ZOSYN 3.375 GM in NS 50 ML IV SCH ×4 (01:05→20:17)
[2019-04-26] MEDS: ZOFRAN IV PRN (01:05)
[2019-04-26] MEDS: PRILOSEC PO SCH ×2 (05:39→08:24)
[2019-04-26 07:03] LABS: HEMATOCRIT 35.5 % (42.0-52.0); HEMOGLOBIN 11.6 g/dL (14.0-18.0); MCH 29.6 PG (27-31); MCHC 32.7 g/dL (33-37); MCV 90.6 FL (81-99); MPV 9.4 FL (7.4-10.4); RBC 3.92 XMIL (4.7-6.1); RDW 13.7 % (11.5-14.5); WBC 6.77 X1000 (4.8-10.8)
[2019-04-26 07:15] LABS: CALCIUM 8.7 mg/dL (8.8-10.2); CREATININE 1.5 mg/dL (0.7-1.2); POTASSIUM 3.5 mmol/L (3.5-5.1)
--- NOTE | 2019-04-26 07:48 | PROGRESS NOTE ---
DATE: 04/26/2019 SUBJECTIVE: No acute events overnight. The patient denies any fevers or chills. Occasionally he will feel like he is shaking. Vitals remain normal. No evidence of tachycardia and blood pressures have all been well controlled. States he is tolerating p.o. intake. The patient wishes to have his catheter removed. OBJECTIVE: Vital signs: Temperature 97.6 degrees, heart rate 93, blood pressure 156/84, oxygenation 95% on room air. General: No acute distress. Resting comfortably in bed. Alert and oriented x3. Respiratory: Good respiratory effort without audible wheezing or rales. Abdomen: Soft, nontender, nondistended. : No suprapubic tenderness. No CVA tenderness. Urethral catheter in place draining clear yellow urine. LABS: Microbiology: Gram negative rods are present in blood and urine cultures, but blood and urine cultures speciation and sensitivities have not returned. ASSESSMENT AND PLAN: Mr. Ibarra is a 68-year-old with hypertension, coronary artery disease, type 2 diabetes, BPH, and chronic back pain, who presents in consultation regarding obstructing right ureteral stone with concern for infection. He was taken the operating room emergently on Thursday and had cystoscopy with right ureteral stent placement. The patient overall has been doing well and no evidence of tachycardia. He has been afebrile. Urethral catheter is in place. We will remove his urethral catheter today, perform PVR after he urinates. We will follow up a.m. labs. The patient will need definitive management of his stones. We will plan to do this next Thursday in the operating room. The patient can likely go home prior to this. I would continue to follow up urine cultures and treat with culture specific antibiotics. We will continue to monitor from a urologic standpoint. Please call with questions or concerns. cc: Reece Cavanaugh MD MTDD
[2019-04-26] MEDS: FLOMAX PO SCH (08:23)
[2019-04-26] MEDS: ZOLOFT PO SCH (08:23)
[2019-04-26] MEDS: NORVASC PO SCH (08:23)
[2019-04-26] MEDS: IMDUR PO SCH (08:24)
[2019-04-26] MEDS: PERIDEX MT SCH ×2 (08:24→20:17)
--- NOTE | 2019-04-26 16:27 | PROGRESS NOTE ---
DATE: 04/26/2019 SUBJECTIVE: The patient is resting comfortably in bed. We do have a positive urine culture and blood culture that showed Escherichia coli that is sensitive to Zosyn. I will repeat the blood culture today, and I will recheck it in 48 hours to see if the bacteremia is improving. The patient has been checked by Dr. Cavanaugh, and he is following this patient closely. The patient will need some more management of his stones probably next week in the operating room, but now he is bacteremic, so I will discuss the case tomorrow with Dr. Cavanaugh to see if I if he wants to keep the patient hospitalized or he wants to wait until the bacteremia is gone. The problem is that if he has a stone and the stone has been infected, probably this is going to be a chronic issue. OBJECTIVE: Vital Signs: Temperature 98.5 degrees, pulse 89, respiratory rate 14, blood pressure 139/84, oxygen saturation 97% on room air. HEENT: Head normocephalic, no trauma. PERRLA. Neck: Supple. No JVD. No masses. Central trachea. Chest: Clear to auscultation. No wheezing. No rales. Abdomen: Soft, nontender, nondistended. No hepatosplenomegaly. Extremities: No edema, no clubbing, no cyanosis. Neurological: He is awake, alert. He is oriented. No focal deficits. LABORATORY: WBC 6.7, hemoglobin 11.6, hematocrit 35.5, platelets 250,000. Sodium 131, potassium 3.5, chloride 96, bicarbonate 26, BUN 16, creatinine 1.5, glucose 137, calcium 8.7. ASSESSMENT AND PLAN: 1. Obstructing right ureteral stone, right hydronephrosis, status post cystoscopic exam with right ureterogram, pyelogram, and right ureteral stent placement, postoperative day number 2. 2. We do have a urine culture that showed Escherichia coli which is sensitive to Zosyn. We will continue with same management. Urology department on board. 3. Bacteremia due to Escherichia coli, sensitive to Zosyn. We will continue with same management for now. I will ask for a new blood culture today and wait 48 hours to see if his blood has sterilized. We will monitor the patient closely. His temperature has been within normal limits. No chills either, vital signs are stable. 4. Urinary tract infection, as per number 1. 5. Hypertension, stable. Continue to monitor. 6. History of coronary artery disease. Continue with the same management for now. 7. Type 2 diabetes. Blood sugar seems to be stable. Continue with same treatment. 8. Chronic kidney disease. Creatinine today is 1.5. It seems to be his baseline. 9. Benign prostatic hypertrophy, aware. I think he had a transurethral resection of prostate (TURP) done before. 10. Chronic back pain. It looks like he had a surgery recently. I did not see any metal in the CT scan. cc: Edward Reyes MD
[2019-04-26] MEDS: LIPITOR PO SCH (20:17)
[2019-04-27] MEDS: ZOSYN 3.375 GM in NS 50 ML IV SCH ×2 (02:20→08:18)
[2019-04-27] MEDS: PRILOSEC PO SCH (06:16)
[2019-04-27 07:13] LABS: BASO# 0.01 X1000 (0.0-0.2); BASO% 0.2 % (0.0-0.8); EOS# 0.08 X1000 (0.0-0.7); EOS% 1.3 % (0.0-10.0); HEMATOCRIT 37.6 % (42.0-52.0); HEMOGLOBIN 12.2 g/dL (14.0-18.0); IMM GRAN# 0.02 X1000 (0.0-0.04); IMM GRAN% 0.3 % (0.0-0.5); LYMPH# 0.69 X1000 (1.2-3.4); LYMPH% 10.8 % (20.5-51.1); MCHC 32.4 g/dL (33-37); MCV 89.3 FL (81-99); MONO# 0.74 X1000 (0.11-0.59); MONO% 11.6 % (1.7-9.3); MPV 9.1 FL (7.4-10.4); NEUT# 4.82 X1000 (1.4-6.5); NEUT% 75.8 % (42.2-75.2); PLT 297 X1000 (130-400); RBC 4.21 XMIL (4.7-6.1); RDW 13.5 % (11.5-14.5); WBC 6.36 X1000 (4.8-10.8)
[2019-04-27 07:54] LABS: CALCIUM 8.9 mg/dL (8.8-10.2); CREATININE 1.3 mg/dL (0.7-1.2); POTASSIUM 3.7 mmol/L (3.5-5.1)
[2019-04-27] MEDS: IMDUR PO SCH (08:16)
[2019-04-27] MEDS: ATACAND PO SCH (08:17)
[2019-04-27] MEDS: FLOMAX PO SCH (08:17)
[2019-04-27] MEDS: ZOLOFT PO SCH (08:17)
[2019-04-27] MEDS: NORVASC PO SCH (08:17)
[2019-04-27] MEDS: PERIDEX MT SCH ×2 (08:17→20:24)
--- NOTE | 2019-04-27 08:37 | PROGRESS NOTE ---
DATE: 04/27/2019 SUBJECTIVE: No acute events overnight. The patient's catheter was removed yesterday, and the patient has been able to void spontaneously, 2800 mL is recorded. The patient states his urine is clear yellow. The patient denies any significant fevers or chills. OBJECTIVE: Vital Signs: Temperature 98.5 degrees, heart rate 84, blood pressure 150/82, oxygen saturation 94% on room air. General: No acute distress. Resting comfortably in bed. Alert and oriented x3. Respiratory: Good respiratory effort, without audible wheezing or rales. Abdomen: Soft, nontender, nondistended. : No suprapubic tenderness. No CVA tenderness. The patient has a bedside urinal with clear-yellow urine. LABORATORY DATA: White blood cell count 6.4, hemoglobin 12.2, hematocrit 37.6, platelets 297,000. Sodium 140, potassium 3.7, chloride 101, bicarb 26, BUN 15, creatinine 1.3, glucose 108. MICROBIOLOGY: The patient's initial blood and urine culture is growing Escherichia coli. The most recent blood cultures are negative at 24 hours. ASSESSMENT AND PLAN: Mr. Ibarra is a 68-year-old with hypertension, coronary artery disease, type 2 diabetes, benign prostatic hypertrophy, and chronic back pain, who presents in consultation regarding obstructing right ureteral stone with a concern for infection. The patient has positive blood and urine cultures, and currently is on culture-specific antibiotics. The patient's culture is resistant to Levaquin, and ultimately will need peripherally-inserted central catheter line intravenous antibiotics. The patient's most recent blood cultures are negative so far. I talked with him. I recommended treatment of stone while on antibiotics. We will plan to do this next Thursday in the operating room. The patient's catheter was removed yesterday, and the patient has been able to spontaneously void. I discussed with him, the risks of the procedure, including bleeding, infection, worsening kidney dysfunction, need for postoperative admission to the hospital, as well as damage to surrounding structures, including bladder, ureter, and kidney. After thorough discussion, he elected to proceed. Will plan to do this next Thursday, and remove stones. The patient will need a stent in afterwards, that would probably be removed in the office following his recovery. The patient can be discharged once home antibiotics are set up. The patient continues to ask whether he can go home later today. I told him that Social Work would have to work on coordinating his antibiotics, and he would need negative blood cultures in order to place a peripherally-inserted central catheter line. The patient expressed understanding. Will continue to monitor from a urologic standpoint. Please call with questions or concerns. cc: Reece Cavanaugh MD MTDD
[2019-04-27] MEDS: ZOSYN 4.5 GM in NS 100 ML IV SCH ×3 (12:40→22:56)
--- NOTE | 2019-04-27 14:47 | PROGRESS NOTE ---
DATE: 04/27/2019 SUBJECTIVE: The patient is resting comfortably in bed. We have a positive blood culture that showed Escherichia coli sensitive to Zosyn. The plan is to wait 48 hours to see if the new blood culture is negative. If this is negative this patient will get a PICC line and he will be discharged home with IV antibiotics. Probably, he will have a procedure done this Thursday. OBJECTIVE: Vital Signs: Temperature 98.4 degrees, pulse 93, respiratory rate 16, blood pressure 130/77. Oxygen saturation 96% on room air. HEENT: Head normocephalic. No trauma. PERRLA. Neck: Supple. No JVD. No masses. Central trachea. Chest: Clear to auscultation. Abdomen: Soft, nontender, nondistended. No hepatosplenomegaly. Extremities: No edema. No clubbing, no cyanosis. Neurological: The patient is awake. He is alert. He is oriented. No focal deficits. LABORATORY: WBC 6.3, hemoglobin 12.2, hematocrit 37.6, platelets 297,000. Sodium 140, potassium 3.7, chloride 101, bicarbonate 26, BUN 15, creatinine 1.3, glucose 108, calcium 8.9. ASSESSMENT AND PLAN: 1. Obstructing right ureteral stone, right hydronephrosis, status post cystoscopic exam with right ureterogram, pyelogram and right ureteral stent placement postoperative day #3. We do have a urine culture that showed Escherichia coli which is sensitive to Zosyn. We will continue with same management. Urology department on board. 2. Bacteremia due to Escherichia coli, sensitive to Zosyn. The plan is to get the culture tomorrow and if this is negative he will have a PICC line placed and discharged home with IV antibiotics for at least 14 days. He will follow up with Infectious Disease Department as an outpatient. My plan is to discuss with them tomorrow my plan, if he has an stone and it is going to be removed next Thursday, probably we need to prolong this treatment but I will let them decide that. 1. Urinary tract infection as per #1. 2. Hypertension stable. 3. History of coronary artery disease. Continue with same management for now. 4. Type 2 diabetes, blood sugar seems to be stable. Continue with same treatment. 5. Chronic kidney disease, this is his baseline. 6. Benign prostatic hypertrophy, aware. I think he had a transurethral resection of the prostate done before. 7. Chronic back pain. Aware. cc: Edward Reyes MD
[2019-04-27] MEDS: LIPITOR PO SCH (20:25)
[2019-04-28] MEDS: PRILOSEC PO SCH ×2 (05:53→06:42)
[2019-04-28] MEDS: ZOSYN 4.5 GM in NS 100 ML IV SCH ×2 (05:53→11:36)
[2019-04-28 08:08] LABS: CREATININE 1.3 mg/dL (0.7-1.2); POTASSIUM 3.6 mmol/L (3.5-5.1)
[2019-04-28 08:55] LABS: INR 1.06
[2019-04-28] MEDS: PERIDEX MT SCH (09:41)
[2019-04-28] MEDS: ATACAND PO SCH (09:41)
[2019-04-28] MEDS: FLOMAX PO SCH (09:41)
[2019-04-28] MEDS: IMDUR PO SCH (09:41)
[2019-04-28] MEDS: NORVASC PO SCH (09:41)
[2019-04-28] MEDS: ZOLOFT PO SCH (09:41)
[2019-04-28 10:31] LABS: PTT 88.2 Seconds (22.3-41.8)
[2019-04-28 11:31] VITALS: BP 150/91
[2019-04-28] MEDS ORDERED: NS 250 ML ONE (13:10)
--- NOTE | 2019-04-29 14:09 | DISCHARGE SUMMARY ---
ADMISSION DATE: 04/23/2019 DISCHARGE DATE: 04/28/2019 DISCHARGE DIAGNOSES: 1. Obstructing right ureteral stone, right hydronephrosis, status post cystoscopic exam with right ureterogram, pyelogram, and right lateral stent placement postoperative day #4. 2. Bacteremia due to Escherichia coli. 3. Urinary tract infection due to Escherichia coli. 4. Hypertension. 5. History of coronary artery disease. 6. Type 2 diabetes. 7. Chronic kidney disease. 8. Benign prostatic hypertrophy. 9. Chronic back pain. PROCEDURES PERFORMED: 1. Chest x-ray dated 04/23/2019 impression: Negative exam. 2. Renal CT scan dated 04/23/2019 impression: A 1.8 mm stone in the proximal right ureter with hydronephrosis and perinephric inflammation, a small nonobstructing left renal stone and prominent atherosclerosis HOSPITAL COURSE: A 68-year-old male with a past medical history of hypertension, coronary artery disease, diabetes, BPH, admitted on 04/23/2019. He presented to the emergency department with 1-week history of having persistent right flank pain that has been getting worse. He went to [facility], and a CT scan showed a 1.8 mm stone in the right ureter with hydronephrosis and perinephric stranding. The case was discussed with Urology, who recommended the patient to be transferred to [facility] for further evaluation and management. At the time of the admission, he denied any fever, chills, headache, chest pain, shortness of breath or any weight changes. He was placed on antibiotics. We asked for blood culture and urine culture. He had a procedure done on 04/24/2019. He had a cystoscopy with right ureterogram, pyelogram and right ureteral stent placement. We had a culture back from the urine and blood and both of then showed Escherichia coli. Since she has been on Zosyn, we will continue with the same medication because this bacteria is sensitive to Zosyn. The first culture was done on 04/23/2019 and the second one was done on 04/26/2019, and 2 days later was negative. So this patient will be discharged home. We placed a PICC line. Infectious Disease Department/the nurse practitioner will follow up this patient as an outpatient upon completion of the treatment. He will be discharged with the Zosyn 4.5 mg q. 8 hours to complete 14 days of treatment. He already received 2 days during this hospitalization. He seems to be stable. He wants to go home. He will need to follow up with Dr. Cavanaugh this Thursday, and the patient will need a definite management of these stones. Like I said, the plan is to see this patient this Thursday in 3 or 4 days to take care of that. PHYSICAL EXAMINATION: Vital signs: Temperature 97.6 degrees, pulse 85, respiratory rate 16, blood pressure 150/91, oxygen saturation 95% on room air. HEENT: Head normocephalic, no trauma. PERRLA. Neck: Neck is supple. No JVD. No masses. Central trachea. Chest: Clear to auscultation. No wheezing. No rales. Abdomen: Soft, nontender, nondistended. No hepatosplenomegaly. Extremities: No edema, no clubbing, no cyanosis. Neurological examination: Patient is awake, alert and oriented x3. No focal deficits. LABORATORY: Sodium 137, potassium 3.6, chloride 99, bicarbonate 26. BUN 14, creatinine 1.3, glucose 126, calcium 9. DISCHARGE MEDICATIONS: Zosyn 4.5 g IV q. 8 hours to complete 14 days of treatment, amlodipine 5 mg p.o. daily, Lipitor 40 mg p.o. at bedtime, At[place]and 32 mg p.o. daily as needed, Charlee 180 mg p.o. daily, gabapentin 100 mg p.o. t.i.d., Imdur 30 mg p.o. daily, omeprazole 40 mg p.o. daily, Rogers 5 q. 6 hours as needed, sertraline 100 mg p.o. daily, and tamsulosin 0.4 mg p.o. daily. TIME SPENT: Time discharging this patient and taking care of the arrangements for the IV antibiotics, he will be discharged with a PICC line and follow up with Infectious Disease Department, nurse practitioner and Dr. Cavanaugh in 4 days. Time discharging this patient 40 minutes. cc: Edward Reyes MD
== END 2019-04-28 14:52 | disposition home health service (06) | DRG 660 ==
LOC: P.ED 18:21 → SUATTDRO 21:09 → 4N 21:09
PROVIDERS: ATTEND Internal Medicine